=== PATIENT | female | born 1945 | race Hispanic/Latino ===

== ENCOUNTER 2017-09-02 07:44 | Inpatient (IN) | payer MEDICARE ==
[~2017-09-02] VITALS: Ht 170.2 cm; Wt 127.0 kg
[~2017-09-02 07:44] MED LIST: ASPIRIN325 MG PO; CLONIDINE HCL0.2 MG PO; FUROSEMIDE40 MG PO; IRBESARTAN150 MG PO; LANTUS100 UNITS/ SC; LASIX40 MG PO; LEVOTHYROXINE100 MCG PO; METOPROLOL TAR100 MG PO; NIFEDICAL XL30 MG PO; NIFEDIPINE ER30 M1 PO; POTASSIUM CHLO20 ME1 PO; TRILIPIX135 MG PO
[2017-09-02 10:23] LABS: BASOPHILS % 0.4 % (0.0-1.0); EOSINOPHILS # (AUTO) 0.1 (0.0-0.4); HEMATOCRIT 32.4 % (34.2-44.1); HEMOGLOBIN 10.1 g/dL (12.0-16.0); LYMPHOCYTES # (AUTO) 0.5 (1.0-3.2); LYMPHOCYTES % 6.6 % (18.0-39.1); MEAN CORPUSCULAR HEMOGLOBIN 29.6 pg (28-32); MEAN CORPUSCULAR HGB CONC 31.2 g/dL (31-35); MONOCYTES # (AUTO) 0.4 (0.2-0.8); MONOCYTES % 6.1 % (4.4-11.3); NEUTROPHILS # (AUTO) 5.9 (2.1-6.9); NEUTROPHILS % 84.5 % (38.7-80.0); PLATELET COUNT 132 x10e3/uL (140-360); RED BLOOD COUNT 3.41 x10e6/uL (3.6-5.1); RED CELL DISTRIBUTION WIDTH 14.1 % (11.7-14.4)
[2017-09-02 10:27] LABS: INR 1.31; PARTIAL THROMBOPLASTIN TIME 26.4 seconds (23.8-35.5); PROTHROMBIN TIME 15.3 seconds (11.9-14.5)
[2017-09-02] MEDS: ENOXAPARIN SODIUM INJ 100 MG/ML SYR SC SCH ×2 (10:30→22:27)
[2017-09-02 10:36] LABS: ALBUMIN 3.8 g/dL (3.5-5.0); ANION GAP 17.2 mmol/L (8-16); CALCIUM 9.3 mg/dL (8.4-10.2); CREATININE, SERUM 2.94 mg/dL (0.57-1.11); POTASSIUM 4.2 mmol/L (3.5-5.1)
[2017-09-02 10:38] LABS: CREATINE KINASE MB 2.5 ng/mL (0-5.0)
[2017-09-02 13:08] LABS: BILIRUBIN,URINE NEGATIVE (NEGATIVE); CLARITY,URINE CLEAR (CLEAR); COLOR,URINE YELLOW (YELLOW); KETONES,URINE NEGATIVE (NEGATIVE); LEUKOCYTE ESTERASE ,URINE NEGATIVE (NEGATIVE); NITRITE,URINE POSITIVE (NEGATIVE); PROTEIN,URINE DIPSTICK 1+ (NEGATIVE); URINE UROBILINOGEN 0.2 mg/dL (0.2 - 1)
[2017-09-02 13:18] LABS: BACTERIA,URINE MANY /HPF; EPITHELIAL CELLS,URINE FEW /LPF; WBC,URINE (MAN) 0-5 /HPF (0-5)
[2017-09-02] MEDS ORDERED: DEXTROSE 50% SYRINGE 50 ML IV PRN ×2 (14:15)
--- NOTE | 2017-09-02 15:43 | Diagnostic Imaging Report ---
EXAMINATION: CHEST 2 VIEWS INDICATION: Shortness of breath COMPARISON: Chest x-ray 11/25/2016. FINDINGS: PA and lateral views TUBES and LINES: None. LUNGS: Lungs are well inflated. There are bibasilar atelectasis. There is perihilar interstitial opacities, consistent with interstitial edema. PLEURA: No pleural effusion or pneumothorax. HEART AND MEDIASTINUM: Worsening cardiac size is severely enlarged. There are atherosclerotic calcifications within the aorta. BONES AND SOFT TISSUES: No acute osseous lesion. Stable partially visualized sided leg and screw fixation of the left humeral fracture. Fracture line of the left humeral head remains partially visualized. Soft tissues are unremarkable. UPPER ABDOMEN: No free air under the diaphragm. IMPRESSION: Severe cardiomegaly with interstitial edema. Signed by: Dr. Tacos Aguirre M.D. on 09/02/2017 3:39 PM
[2017-09-02 16:30] VITALS: BP 167/95
[2017-09-02] MEDS: INSULIN REGULAR, HUMAN 100 UNIT/1 ML 3ML VIAL SQ SCH ×2 (16:30→21:00)
[2017-09-02 16:47] VITALS: BP 167/95
[2017-09-02] MEDS: APIXAB 2.5 MG TABLET PO SCH (18:02)
[2017-09-02] MEDS: FUROSEMIDE INJ 10 MG/ML 4 ML VIAL IV SCH (18:02)
[2017-09-02] MEDS ORDERED: HYDRALAZINE HCL 20 MG/ML VIAL IV PRN (18:45)
[2017-09-02 19:39] LABS: CREATINE KINASE MB 2.7 ng/mL (0-5.0)
[2017-09-02 20:00] VITALS: BP 146/79
[2017-09-03] VITALS (7 sets, daily range): BP systolic 115–149; BP diastolic 59–76
[2017-09-03 01:31] LABS: CREATINE KINASE MB 2.4 ng/mL (0-5.0)
[2017-09-03] MEDS: INSULIN REGULAR, HUMAN 100 UNIT/1 ML 3ML VIAL SQ SCH ×4 (07:30→20:33)
[2017-09-03 07:55] LABS: BASOPHILS # (AUTO) 0.1 (0.0-0.1); BASOPHILS % 0.7 % (0.0-1.0); EOSINOPHILS # (AUTO) 0.1 (0.0-0.4); EOSINOPHILS % 2.1 % (0.0-6.0); HEMATOCRIT 31.6 % (34.2-44.1); HEMOGLOBIN 9.9 g/dL (12.0-16.0); LYMPHOCYTES # (AUTO) 0.6 (1.0-3.2); LYMPHOCYTES % 9.4 % (18.0-39.1); MEAN CORPUSCULAR HGB CONC 31.3 g/dL (31-35); MEAN CORPUSCULAR VOLUME 95.8 fL (81-99); MONOCYTES # (AUTO) 0.5 (0.2-0.8); NEUTROPHILS # (AUTO) 5.4 (2.1-6.9); NEUTROPHILS % 80.5 % (38.7-80.0); PLATELET COUNT 160 x10e3/uL (140-360); RED CELL DISTRIBUTION WIDTH 14.1 % (11.7-14.4)
[2017-09-03 08:15] LABS: CALCIUM 9.4 mg/dL (8.4-10.2); CREATININE, SERUM 3.01 mg/dL (0.57-1.11)
[2017-09-03] MEDS ORDERED: METOPROLOL TARTRATE INJ 1 MG/ML VIAL IV PRN (08:30)
[2017-09-03 08:41] LABS: CREATINE KINASE MB 1.9 ng/mL (0-5.0)
[2017-09-03] MEDS ORDERED: FUROSEMIDE INJ 10 MG/ML 4 ML VIAL IV SCH (09:00)
[2017-09-03] MEDS ORDERED: FENOFIBRIC ACID 135 MG PO SCH (09:00)
[2017-09-03] MEDS: NIFEDIPINE CR 30 MG TAB PO SCH (09:00)
[2017-09-03] MEDS: LEVOTHYROXINE SODIUM 100 MCG TAB PO SCH (09:00)
[2017-09-03] MEDS: METOPROLOL TARTRATE 25 MG TAB PO SCH ×2 (09:16→17:11)
[2017-09-03] MEDS: APIXAB 2.5 MG TABLET PO SCH ×2 (09:16→17:11)
[2017-09-03] MEDS: POTASSIUM CHLORIDE 20 MEQ TAB CR PO SCH (09:16)
[2017-09-03] MEDS: FUROSEMIDE INJ 10 MG/ML 4 ML VIAL IV SCH ×2 (09:16→17:10)
[2017-09-03 09:57] LABS: FREE THYROXINE INDEX 2.5742 (1.4-3.8); THYROID STIMULATING HORMONE 3.297 uIU/mL (0.350-4.940)
--- NOTE | 2017-09-03 10:51 | History and Physical ---
CHIEF COMPLAINT: Patient comes in with shortness of breath and came in with weight gain. HISTORY OF PRESENTING ILLNESS: The patient with a history of hypertension, history of chronic kidney disease, history of hypothyroidism, in usual state of health until 2 days prior to admission the patient noticed to have increasing weight gain and also shortness of breath and was advised by her renal doctor to go to the emergency room if it gets to that point, and she came in, was found to have atrial fibrillation and also started on medications for the same. PAST MEDICAL HISTORY: History of CKD, history of hypertension, history of diabetes mellitus, history of hypothyroidism, history of MRSA pneumonia in the past, and history of hyperkalemia. MEDICINES: She takes at home are: 1. Aspirin 325 mg. 2. Clonidine 0.2 mg. 3. Fenofibrate 135 mg. 4. Lasix 40 mg. 5. Insulin glargine 60 units at nighttime. 6. Levothyroxine 100 mcg daily. 7. Metoprolol 100 mg daily. 8. Nifedipine 30 mg. 9. Potassium chloride 20 mEq. PAST SURGICAL HISTORY: History of shoulder surgery, otherwise negative and noncontributory. SOCIAL HISTORY: No ETOH, no IV drug abuse, and no history of smoking either. FAMILY HISTORY: Noncontributory. REVIEW OF SYSTEMS: Negative for chest pain. Positive for some shortness of breath and orthopnea. No PND. No nausea, vomiting, diarrhea. No constipation. No rectal bleeding and no hematochezia and hematemesis. PHYSICAL EXAMINATION: GENERAL: Patient is alert and oriented x3. VITAL SIGNS: Temperature is 97.7, pulse of 109, respiration of 19, blood pressure is 136/70. HEENT: Normocephalic, atraumatic. Pupils react to light and accommodation. CVS: S1 and S2 normal. Irregularly irregular. ABDOMEN: Nontender, nondistended. EXTREMITIES: Positive for edema. LABORATORY VALUES: Initial white count was 6.9, hemoglobin of 10.1, hematocrit of 32.4. Chemistries: BUN and creatinine 76 and 3.01. Coags were normal. Urine was also normal. Chest x-ray showed severe cardiomegaly with interstitial edema. ASSESSMENT: 1. Volume overload. Will go and do an echocardiogram. 2. Atrial fibrillation, new onset. Has been started on Eliquis. Will continue monitoring it. Also check thyroid levels to see for hyperthyroidism or overcorrection. Continue monitoring her fluids. Inputs and outputs to be monitored. Salt restriction and also cardiac diet, low-sodium diet. Further recommendations on clinical course. Also, phlebotomy technologist has been consulted. Job#: [id number]
[2017-09-03] MEDS: CLONIDINE HCL 0.2 MG TAB PO SCH (17:11)
[2017-09-03] MEDS: FENOFIBRIC ACID 135 MG PO SCH (20:33)
[2017-09-03] MEDS ORDERED: HOME MEDICATION--PATIENTS OWN PO SCH (21:00)
[2017-09-04] VITALS: BP 136/60
--- NOTE | 2017-09-04 00:30 | Consultation ---
DATE OF CONSULTATION: September 03, 2017 REASON FOR CONSULTATION: New-onset AFib. CONSULTING PHYSICIAN: Dr. Haines HPI: This is a pleasant 72-year-old female that presented with fluid retention. According to the patient, she said she has had increased bilateral lower extremity edema, had gained 14 lbs in 1 week, was having shortness of breath, dyspnea on exertion, and difficulty laying down that she decided to come into the emergency room for evaluation. She has a history of CHF and COPD. In the ER, she was found to be in AFib with RVR and she was admitted for further evaluation. She denies any chest pain, any dizziness, any diaphoresis or headache. Troponin was negative. EKG irregularly irregular. BNP 615. PAST MEDICAL HISTORY: High blood pressure, diabetes, CHF, hypothyroidism, COPD, hyperlipidemia, anemia, CKD, pneumonia, obesity. PAST SURGICAL HISTORY: Left shoulder surgery and tracheostomy in the past. FAMILY HISTORY: Positive for CAD. SOCIAL HISTORY: No smoking, no drinking. She lives at home alone. MEDICATIONS: See med list. ALLERGIES: SHE IS NOT ALLERGIC TO ANY MEDICATION. REVIEW OF SYSTEMS: Negative except those mentioned above. PHYSICAL EXAMINATION VITALS: Temperature 97, heart rate 104, blood pressure 136/61, respiration 18, oxygen saturation 96% on 2 L nasal cannula. GENERAL: She is alert, awake, and oriented times 3. HEENT: Mucous membrane moist. NECK: Supple. LUNGS: Bilateral clear to auscultation. CARDIOVASCULAR: Irregularly irregular. ABDOMEN: Soft. NEUROLOGIC: Intact. EXTREMITIES: Positive with edema. LABS: Sodium 143, potassium 4.2, chloride 107, CO2 23, BUN 77, creatinine 2.94. Glucose 154. White blood cells 6.93, hemoglobin 10.1, hematocrit 32.4, platelet 132,000. PT 15.3, PTT 26.4, INR 1.31. IMPRESSIONS 1. New-onset atrial fibrillation. 2. Chronic kidney disease. 3. Hypothyroidism. 4. Diabetes. 5. Hypertension. 6. Obesity. 7. History of congestive heart failure and chronic obstructive pulmonary disease. ASSESSMENT AND PLAN: Will go ahead an echocardiogram to assess the left ventricular and the valve function. Will continue her home medication. Explained the risks and benefits of oral anticoagulation. She agreed. An Eliquis was started from the emergency room. Will put her on low-salt diet and daily weight. Further cardiac workup pending clinical cause. Thank you for this consultation. Dictated By: Paul Cardona NP Job#: [id number] CQ
[2017-09-04] MEDS: LEVOTHYROXINE SODIUM 100 MCG TAB PO SCH (05:39)
[2017-09-04 07:06] LABS: BASOPHILS # (AUTO) 0.1 (0.0-0.1); BASOPHILS % 1.1 % (0.0-1.0); EOSINOPHILS # (AUTO) 0.2 (0.0-0.4); EOSINOPHILS % 3.4 % (0.0-6.0); HEMATOCRIT 31.7 % (34.2-44.1); HEMOGLOBIN 9.7 g/dL (12.0-16.0); LYMPHOCYTES # (AUTO) 0.7 (1.0-3.2); LYMPHOCYTES % 12.3 % (18.0-39.1); MEAN CORPUSCULAR HEMOGLOBIN 29.7 pg (28-32); MEAN CORPUSCULAR HGB CONC 30.6 g/dL (31-35); MEAN CORPUSCULAR VOLUME 96.9 fL (81-99); MONOCYTES # (AUTO) 0.5 (0.2-0.8); MONOCYTES % 9.8 % (4.4-11.3); NEUTROPHILS # (AUTO) 3.9 (2.1-6.9); NEUTROPHILS % 72.8 % (38.7-80.0); PLATELET COUNT 151 x10e3/uL (140-360); RED BLOOD COUNT 3.27 x10e6/uL (3.6-5.1); RED CELL DISTRIBUTION WIDTH 13.8 % (11.7-14.4)
[2017-09-04] MEDS: INSULIN REGULAR, HUMAN 100 UNIT/1 ML 3ML VIAL SQ SCH ×4 (07:30→21:00)
[2017-09-04 07:36] LABS: ANION GAP 14.2 mmol/L (8-16); CALCIUM 9.3 mg/dL (8.4-10.2); CREATININE, SERUM 3.17 mg/dL (0.57-1.11); POTASSIUM 4.2 mmol/L (3.5-5.1)
[2017-09-04 07:56] VITALS: BP 139/80
[2017-09-04 08:30] VITALS: BP 139/80
[2017-09-04] MEDS: CLONIDINE HCL 0.2 MG TAB PO SCH ×2 (08:56→16:50)
[2017-09-04] MEDS: FUROSEMIDE INJ 10 MG/ML 4 ML VIAL IV SCH ×2 (08:56→16:50)
[2017-09-04] MEDS: APIXAB 2.5 MG TABLET PO SCH ×2 (08:57→16:50)
[2017-09-04] MEDS: NIFEDIPINE CR 30 MG TAB PO SCH (08:57)
[2017-09-04] MEDS: POTASSIUM CHLORIDE 20 MEQ TAB CR PO SCH (08:57)
[2017-09-04] MEDS: METOPROLOL TARTRATE 25 MG TAB PO SCH ×2 (08:57→16:50)
[2017-09-04] MEDS: INSULIN DETEMIR 100 UNIT/ML PEN SQ SCH (11:30)
[2017-09-04 12:00] VITALS: BP 112/70
[2017-09-04 16:00] VITALS: BP 124/65
[2017-09-04 20:00] VITALS: BP 119/61
[2017-09-04] MEDS: FENOFIBRIC ACID 135 MG PO SCH (21:00)
[2017-09-05] VITALS: BP 111/57
[2017-09-05 04:00] VITALS: BP 130/63
[2017-09-05] MEDS: LEVOTHYROXINE SODIUM 100 MCG TAB PO SCH (05:55)
[2017-09-05 07:27] LABS: ANION GAP 14.6 mmol/L (8-16); CREATININE, SERUM 3.38 mg/dL (0.57-1.11); POTASSIUM 4.6 mmol/L (3.5-5.1)
[2017-09-05] MEDS: INSULIN REGULAR, HUMAN 100 UNIT/1 ML 3ML VIAL SQ SCH ×3 (07:30→16:45)
[2017-09-05 08:00] VITALS: BP 118/56
[2017-09-05] MEDS: INSULIN DETEMIR 100 UNIT/ML PEN SQ SCH (08:15)
[2017-09-05] MEDS: FUROSEMIDE INJ 10 MG/ML 4 ML VIAL IV SCH ×2 (08:15→16:00)
[2017-09-05] MEDS: NIFEDIPINE CR 30 MG TAB PO SCH (08:15)
[2017-09-05] MEDS: CLONIDINE HCL 0.2 MG TAB PO SCH ×3 (08:15→17:42)
[2017-09-05] MEDS: METOPROLOL TARTRATE 25 MG TAB PO SCH ×2 (08:16→16:00)
[2017-09-05] MEDS: APIXAB 2.5 MG TABLET PO SCH ×2 (08:16→16:00)
[2017-09-05] MEDS: POTASSIUM CHLORIDE 20 MEQ TAB CR PO SCH (08:16)
[2017-09-05 08:22] VITALS: BP 118/56
[2017-09-05 12:00] VITALS: BP 112/69
[2017-09-05 16:00] VITALS: BP 114/68
--- NOTE | 2017-10-17 00:02 | Discharge Summary ---
The patient came in with shortness of breath and with weight gain. The patient had a diagnosis of volume overload. Echocardiogram was done. Atrial fibrillation, new onset, was also diagnosed, was started on Eliquis and continued monitoring. Cardiology consult was done. Patient also had shortness of breath, which got better with diuresis. Consult with Dr. Matthews was done. AFib, CKD, hypothyroidism, diabetes, hypertension, obesity, all were taken controlled. Patient's rate control was achieved by metoprolol also. Patient was on furosemide and discharged home on furosemide, insulin, levothyroxine at 200 mcg, hydralazine, and apixaban 2.5 mg b.i.d. Patient's creatinine was 3.01, which she has a renal doctor on outpatient basis, so patient will follow up with her renal doctor. FINAL DIAGNOSES 1. Congestive heart failure, systolic, acute on chronic. 2. Atrial fibrillation, new onset, started on apixaban. 3. Chronic diuresis, chronic kidney disease. Continue with diuresis. The patient was asked to follow up with her primary care physician and renal doctor and also, her cardiac doctor. HALEY NAJERA MD Job#: [id number] CQ
== END 2017-09-05 18:04 | disposition home or self-care (01) | DRG 291 ==
LOC: ER 07:44 → ERHOLD 14:38 → MED/SURG3 15:15
PROVIDERS: ADMIT Family Medicine; ATTEND Family Medicine
DX: I13.0 Hypertensive heart and chronic kidney disease with heart failure and stage 1 through stage 4 chronic kidney disease, or unspecified chronic kidney disease (principal); I50.23 Acute on chronic systolic (congestive) heart failure; I48.91 Unspecified atrial fibrillation; E87.70 Fluid overload, unspecified; Z68.41 Body mass index [BMI] 40.0-44.9, adult; E03.9 Hypothyroidism, unspecified; E66.9 Obesity, unspecified; J44.9 Chronic obstructive pulmonary disease, unspecified; E78.5 Hyperlipidemia, unspecified; N18.3 Chronic kidney disease, stage 3 (moderate)
CPT/HCPCS: 36415; 71046; 80048; 80053; 81001; 82550; 82553; 82948; 83880; 84436; 84443; 84479; 84484; 85025; 85610; 85730; 87086; 93005; 93306; 99284; J1650; J1940

== ENCOUNTER 2018-01-01 14:28 | Observation (INO) | payer MEDICARE, OTHER ==
[~2018-01-01] VITALS: Ht 170.2 cm; Wt 133.8 kg
--- NOTE | 2018-01-01 16:07 | Diagnostic Imaging Report ---
PROCEDURE: A single AP view of the chest. COMPARISON: 09/02/17 INDICATIONS: SEVERE ANEMIC, STAGE 4 KIDNEY FAILURE; FEELING AND IS WEAK FINDINGS: Lines/tubes: None. Lungs: Pulmonary vascular congestion and mild interstitial edema. Pleura: There is no pneumothorax. Heart and mediastinum: Enlarged cardiac silhouette. Bones: No acute bony abnormality. Partially imaged left humeral plate and screw fixation. IMPRESSION: Enlarged cardiac silhouette, pulmonary vasculature congestion, and mild interstitial edema. Dictated by: Mynor Beckwith M.D. on 01/01/2018 at 16:14 Electronically approved by: Mynor Beckwith M.D. on 01/01/2018 at 16:14
[2018-01-01 16:10] LABS: BASOPHILS % 0.4 % (0.0-1.0); EOSINOPHILS # (AUTO) 0.1 (0.0-0.4); EOSINOPHILS % 1.9 % (0.0-6.0); HEMATOCRIT 26.5 % (34.2-44.1); HEMOGLOBIN 8.3 g/dL (12.0-16.0); LYMPHOCYTES # (AUTO) 0.5 (1.0-3.2); LYMPHOCYTES % 6.5 % (18.0-39.1); MEAN CORPUSCULAR HEMOGLOBIN 29.3 pg (28-32); MEAN CORPUSCULAR HGB CONC 31.3 g/dL (31-35); MEAN CORPUSCULAR VOLUME 93.6 fL (81-99); MONOCYTES # (AUTO) 0.5 (0.2-0.8); MONOCYTES % 6.7 % (4.4-11.3); NEUTROPHILS # (AUTO) 5.9 (2.1-6.9); NEUTROPHILS % 83.9 % (38.7-80.0); PLATELET COUNT 233 x10e3/uL (140-360); RED BLOOD COUNT 2.83 x10e6/uL (3.6-5.1); RED CELL DISTRIBUTION WIDTH 14.7 % (11.7-14.4)
[2018-01-01] MEDS ORDERED: FUROSEMIDE INJ 10 MG/ML 4 ML VIAL IV ONE (16:15)
[2018-01-01 16:24] LABS: INR 2.1; PROTHROMBIN TIME 22.1 seconds (11.9-14.5)
[2018-01-01 16:25] LABS: PARTIAL THROMBOPLASTIN TIME 41.9 seconds (23.8-35.5)
[2018-01-01 16:43] LABS: ALBUMIN 2.9 g/dL (3.5-5.0); ALBUMIN/GLOBULIN RATIO 0.8 (0.8-2.0); CALCIUM 8.9 mg/dL (8.4-10.2); CREATININE, SERUM 2.6 mg/dL (0.57-1.11)
[2018-01-01 16:51] LABS: CREATINE KINASE MB 0.8 ng/mL (0-5.0)
[2018-01-01 16:52] LABS: ANION GAP 16.7 mmol/L (8-16); POTASSIUM 4.7 mmol/L (3.5-5.1)
[2018-01-01 17:37] LABS: CLARITY,URINE SL CLOUDY (CLEAR); COLOR,URINE YELLOW (YELLOW); KETONES,URINE NEGATIVE (NEGATIVE); LEUKOCYTE ESTERASE ,URINE NEGATIVE (NEGATIVE); NITRITE,URINE NEGATIVE (NEGATIVE); PROTEIN,URINE DIPSTICK TRACE (NEGATIVE); URINE UROBILINOGEN 0.2 mg/dL (0.2 - 1)
[2018-01-01 17:38] LABS: AMORPHOUS SEDIMENT,URINE FEW (FEW); BACTERIA,URINE MANY /HPF; BILIRUBIN,URINE NEGATIVE (NEGATIVE); EPITHELIAL CELLS,URINE FEW /LPF
[2018-01-01] MEDS ORDERED: SODIUM CHLORIDE FLUSH 10 ML SYR INJ PRN (18:30)
[2018-01-01] MEDS ORDERED: DEXTROSE 50% SYRINGE 50 ML IV PRN (19:00)
[2018-01-01] MEDS: CEFTRIAXONE SOD 1 GM VIAL IV SCH (19:09)
[2018-01-01] MEDS: INSULIN REGULAR, HUMAN 100 UNIT/1 ML 3ML VIAL SQ SCH (19:59)
[2018-01-01] MEDS ORDERED: ASPIR 8181 MG PO (20:14)
[2018-01-01] MEDS ORDERED: METOPROLOL TART25 MG PO (20:14)
[2018-01-01] MEDS ORDERED: apixaban PO (20:15)
--- NOTE | 2018-01-01 21:20 | History and Physical ---
CHIEF COMPLAINT: [id number] female comes in with generalized weakness. HISTORY OF PRESENTING ILLNESS: This is Ms. Angelica Haskins with a history of hypertension, with history of diabetes mellitus, chronic renal disease 4, was in usual state of health until the patient started to have consecutive days of weakness. The patient has been having this for last 3 months, for the last 2 days the patient weakness has gotten increased in exacerbation and patient came in and was admitted for congestive heart failure, for fluid overload, and for chronic kidney disease. PAST MEDICAL HISTORY: History of CKD, history of hypertension, history of hyperlipidemia, history of diabetes mellitus, history of hypothyroidism, and history of AFib, on anticoagulation. Patient also has DJD of the lower extremities. MEDICATIONS: Include aspirin 325, clonidine 0.2 mg, fenofibrate (Trilipix) 135 mg, insulin glargine 60 units at nighttime, levothyroxine 200 mcg daily, metoprolol 100 mg daily, nifedipine ER 30 mg, potassium chloride 20 mEq daily. SURGICAL HISTORY: Includes history of left shoulder surgery and history of cataract surgery. REVIEW OF SYSTEMS: Negative for chest pain. Positive for some shortness of breath. No nausea, vomiting, diarrhea. No constipation, rectal bleeding. No hematochezia, no hematemesis. SOCIAL HISTORY: No ETOH, no IV drug abuse, and no smoking history. PHYSICAL EXAMINATION: GENERAL: Patient is alert and oriented x3. She has gotten 80 mg of Lasix and she is diuresing well. VITAL SIGNS: Temperature is 97.9, blood pressure is 114/62, pulse of 70, respirations of 18. HEENT: Normocephalic, atraumatic. Pupils react to light and accommodation. CVS: S1 and S2 normal. S3 present. Regular rate and rhythm. ABDOMEN: Nontender, nondistended. EXTREMITIES: Positive for edema. LUNGS: Have crackles on bilateral bases. LABORATORY VALUES: White count of 6.97, hemoglobin of 8.3, and hematocrit of 26.5, RDW was 14.7, neutrophil count was at 83.9. Coags were INR was 2.1 and 22.1, APTT 1.9. Chemistry: Sodium 135, BUN 55, creatinine of 2.6, GFR of 18, glucose is 224. BNP of 879. Urine, many bacteria, otherwise cloudy. MICROBIOLOGY: Urine has been sent for culture. IMAGING STUDIES: Showed enlarged cardiac silhouette, pulmonary vascular congestion, mild interstitial edema. ASSESSMENT: 1. Chronic renal failure. 2. Weakness. 3. Congestive heart failure, [id number]-fsmhrtk. Echocardiogram has been ordered. Thyroid has been ordered. Will follow up per the B-type natriuretic peptide. Dr. Romano has been consulted for her chronic kidney disease. Anemia, will do iron deficiency panel and continue monitoring his complete blood cell count and comprehensive metabolic panel. Further recommendations on clinical course. Will continue diuresing the patient and checking her electrolytes on a daily basis. The patient will be restarted back on her home medications including Eliquis 2.5 mg daily. Job#: [id number]
[2018-01-01 22:31] VITALS: BP 121/70
[2018-01-01 22:33] VITALS: BP 121/70
[2018-01-01 22:39] VITALS: BP 121/70
[2018-01-02] VITALS (7 sets, daily range): BP systolic 115–133; BP diastolic 55–77
[2018-01-02 01:30] LABS: CREATINE KINASE MB 0.7 ng/mL (0-5.0)
[2018-01-02] MEDS: LEVOTHYROXINE SODIUM 100 MCG TAB PO SCH (05:26)
[2018-01-02 05:29] LABS: BASOPHILS % 0.7 % (0.0-1.0); EOSINOPHILS # (AUTO) 0.4 (0.0-0.4); HEMOGLOBIN 8.2 g/dL (12.0-16.0); LYMPHOCYTES # (AUTO) 0.5 (1.0-3.2); LYMPHOCYTES % 8.8 % (18.0-39.1); MEAN CORPUSCULAR HEMOGLOBIN 28.7 pg (28-32); MEAN CORPUSCULAR HGB CONC 30.4 g/dL (31-35); MEAN CORPUSCULAR VOLUME 94.4 fL (81-99); MONOCYTES # (AUTO) 0.5 (0.2-0.8); NEUTROPHILS # (AUTO) 4.4 (2.1-6.9); NEUTROPHILS % 75.2 % (38.7-80.0); PLATELET COUNT 240 x10e3/uL (140-360); RED BLOOD COUNT 2.86 x10e6/uL (3.6-5.1); RED CELL DISTRIBUTION WIDTH 14.6 % (11.7-14.4)
[2018-01-02 05:48] LABS: ALBUMIN 2.8 g/dL (3.5-5.0); ALBUMIN/GLOBULIN RATIO 0.7 (0.8-2.0); ANION GAP 15.6 mmol/L (8-16); CALCIUM 8.9 mg/dL (8.4-10.2); CREATININE, SERUM 2.58 mg/dL (0.57-1.11); POTASSIUM 4.6 mmol/L (3.5-5.1)
[2018-01-02 06:21] LABS: FERRITIN 109.09 ng/mL (4.63-204.00)
[2018-01-02 06:55] LABS: FREE THYROXINE INDEX 2.2084 (1.4-3.8); THYROID STIMULATING HORMONE 3.732 uIU/mL (0.350-4.940)
[2018-01-02 06:57] LABS: EOSINOPHILS % (MANUAL) 4 % (0-7); LYMPHOCYTES % (MANUAL) 17 % (19-48); MONOCYTES % (MANUAL) 12 % (3.4-9.0); NEUTROPHILS % (MANUAL) 67 % (40-74)
[2018-01-02 06:58] LABS: ANISOCYTOSIS SLIGHT; HYPOCHROMASIA SLIGHT; PLATELET ESTIMATE ADEQUATE; PLATELET MORPHOLOGY COMMENT NORMAL; RBC MORPHOLOGY COMMENT ABNORMAL
[2018-01-02] MEDS: INSULIN REGULAR, HUMAN 100 UNIT/1 ML 3ML VIAL SQ SCH ×4 (08:15→20:26)
[2018-01-02] MEDS: FUROSEMIDE 40 MG TAB PO SCH ×2 (09:00→17:00)
[2018-01-02] MEDS ORDERED: APIXAB 2.5 MG TABLET PO SCH (09:00)
[2018-01-02 09:13] LABS: CREATINE KINASE MB 0.7 ng/mL (0-5.0)
[2018-01-02] MEDS: CLONIDINE HCL 0.2 MG TAB PO SCH ×2 (09:18→17:02)
[2018-01-02] MEDS: NIFEDIPINE CR 30 MG TAB PO SCH (09:20)
[2018-01-02] MEDS: METOPROLOL TARTRATE 25 MG TAB PO SCH ×2 (09:20→17:03)
[2018-01-02] MEDS: INSULIN DETEMIR 100 UNIT/ML PEN SQ SCH (09:21)
[2018-01-02] MEDS: FUROSEMIDE INJ 10 MG/ML 4 ML VIAL IV SCH ×2 (09:28→17:02)
[2018-01-02] MEDS: ASPIRIN 81 MG CHEW TAB PO SCH (09:28)
[2018-01-02] MEDS: FENOFIBRIC ACID 135 MG PO SCH (09:33)
[2018-01-02 18:33] LABS: CREATINE KINASE MB 0.6 ng/mL (0-5.0)
[2018-01-02] MEDS: CEFTRIAXONE SOD 1 GM VIAL IV SCH (19:15)
[2018-01-03] VITALS: BP 130/60
[2018-01-03 04:00] VITALS: BP 129/60
[2018-01-03] MEDS: LEVOTHYROXINE SODIUM 100 MCG TAB PO SCH (05:01)
[2018-01-03] MEDS: INSULIN REGULAR, HUMAN 100 UNIT/1 ML 3ML VIAL SQ SCH (07:30)
[2018-01-03 07:43] VITALS: BP 128/67
[2018-01-03] MEDS: INSULIN DETEMIR 100 UNIT/ML PEN SQ SCH (08:01)
[2018-01-03] MEDS: ASPIRIN 81 MG CHEW TAB PO SCH (08:10)
[2018-01-03] MEDS: CLONIDINE HCL 0.2 MG TAB PO SCH (08:10)
[2018-01-03] MEDS: FUROSEMIDE 40 MG TAB PO SCH (08:10)
[2018-01-03] MEDS: FUROSEMIDE INJ 10 MG/ML 4 ML VIAL IV SCH (08:10)
[2018-01-03] MEDS: NIFEDIPINE CR 30 MG TAB PO SCH (08:11)
[2018-01-03] MEDS: METOPROLOL TARTRATE 25 MG TAB PO SCH (08:11)
[2018-01-03] MEDS: FENOFIBRIC ACID 135 MG PO SCH (09:00)
[2018-01-03] MEDS ORDERED: APIXAB 2.5 MG TABLET PO SCH (09:00)
== END 2018-01-03 10:39 | disposition home or self-care (01) ==
LOC: ER 14:28 → ERHOLD 18:49 → IMCU 21:58
PROVIDERS: ADMIT Family Medicine; ATTEND Family Medicine
DX: I13.0 Hypertensive heart and chronic kidney disease with heart failure and stage 1 through stage 4 chronic kidney disease, or unspecified chronic kidney disease (principal); I50.43 Acute on chronic combined systolic (congestive) and diastolic (congestive) heart failure; R53.1 Weakness; E11.22 Type 2 diabetes mellitus with diabetic chronic kidney disease; N18.9 Chronic kidney disease, unspecified; E11.65 Type 2 diabetes mellitus with hyperglycemia; D63.1 Anemia in chronic kidney disease; N18.4 Chronic kidney disease, stage 4 (severe); E78.5 Hyperlipidemia, unspecified; E03.9 Hypothyroidism, unspecified; I48.91 Unspecified atrial fibrillation; Z79.01 Long term (current) use of anticoagulants
CPT/HCPCS: 36415 ×2; 51700; 71045; 80053 ×2; 81001; 82550 ×2; 82553 ×2; 82728; 82948 ×3; 83540; 83880; 84436; 84443; 84466; 84479; 84484 ×2; 85025 ×2; 85610; 85730; 87086; 93005; 93306; 99284; G0378 ×3; J0696 ×2; J1940 ×3

== ENCOUNTER 2018-03-09 09:10 | Inpatient (IN) | payer MEDICARE, OTHER ==
[~2018-03-09] VITALS: Ht 170.2 cm; Wt 127.0 kg
[~2018-03-09 09:10] MED LIST changes: +ASPIR 8181 MG PO; +METOPROLOL TART25 MG PO; +apixaban PO
[2018-03-09 09:41] LABS: BASOPHILS % 0.6 % (0.0-1.0); EOSINOPHILS # (AUTO) 0.1 (0.0-0.4); EOSINOPHILS % 0.8 % (0.0-6.0); HEMATOCRIT 36.4 % (34.2-44.1); HEMOGLOBIN 11.4 g/dL (12.0-16.0); LYMPHOCYTES # (AUTO) 0.3 (1.0-3.2); LYMPHOCYTES % 4.4 % (18.0-39.1); MEAN CORPUSCULAR HGB CONC 31.3 g/dL (31-35); MEAN CORPUSCULAR VOLUME 92.6 fL (81-99); MONOCYTES # (AUTO) 0.4 (0.2-0.8); MONOCYTES % 6.5 % (4.4-11.3); NEUTROPHILS # (AUTO) 5.4 (2.1-6.9); NEUTROPHILS % 87.1 % (38.7-80.0); PLATELET COUNT 195 x10e3/uL (140-360); RED BLOOD COUNT 3.93 x10e6/uL (3.6-5.1); RED CELL DISTRIBUTION WIDTH 16.8 % (11.7-14.4)
[2018-03-09] MEDS ORDERED: ALBUTEROL/IPRATROPIUM 3 ML NEB NEB ONE (09:45)
[2018-03-09 09:58] LABS: ALBUMIN 3.7 g/dL (3.5-5.0); ALBUMIN/GLOBULIN RATIO 0.9 (0.8-2.0); ANION GAP 17.5 mmol/L (8-16); CALCIUM 9.2 mg/dL (8.4-10.2); CREATININE, SERUM 2.49 mg/dL (0.57-1.11); MAGNESIUM 2.7 MG/DL (1.3-2.1); PHOSPHORUS 3.4 MG/DL (2.3-4.7); POTASSIUM 4.5 mmol/L (3.5-5.1)
[2018-03-09 10:18] LABS: THYROID STIMULATING HORMONE 7.018 uIU/mL (0.350-4.940)
--- NOTE | 2018-03-09 10:22 | Diagnostic Imaging Report ---
PROCEDURE: A single AP view of the chest. COMPARISON: Chest radiograph 01/01/18. INDICATIONS: WEAKNESS, SHORTNESS OF BREATH X 1 WEEK FINDINGS: Lines/tubes: None. Lungs: Perihilar and interstitial opacities. Consolidative opacity is present in the right upper lobe and bilateral lower lobes. Pleura: Small bilateral pleural effusions. No evidence of pneumothorax. Heart and mediastinum: Enlarged cardiomediastinal silhouette. Bones: No acute bony abnormality. IMPRESSION: Moderate pulmonary interstitial edema with small bilateral pleural effusions. Multifocal consolidative opacities which could represent superimposed pneumonia or alveolar edema. Follow up chest radiograph suggested to assess for resolution. Dictated by: LAWRENCE CHATMAN M.D. on 03/09/2018 at 10:31 Electronically approved by: LAWRENCE CHATMAN M.D. on 03/09/2018 at 10:31
[2018-03-09] MEDS ORDERED: CEFTRIAXONE SOD 1 GM VIAL IV SCH (11:00)
[2018-03-09] MEDS ORDERED: FUROSEMIDE INJ 10 MG/ML 4 ML VIAL IV ONE ×2 (11:00→11:15)
[2018-03-09] MEDS ORDERED: SODIUM CHLORIDE FLUSH 10 ML SYR INJ PRN (11:15)
[2018-03-09] MEDS ORDERED: ASPIRIN 81 MG CHEW TAB PO ONE ×2 (11:15→15:30)
[2018-03-09 11:36] LABS: CLARITY,URINE CLOUDY (CLEAR); COLOR,URINE YELLOW (YELLOW); LEUKOCYTE ESTERASE ,URINE 2+ (NEGATIVE); NITRITE,URINE POSITIVE (NEGATIVE); PROTEIN,URINE DIPSTICK 1+ (NEGATIVE)
[2018-03-09 11:37] LABS: BILIRUBIN,URINE NEGATIVE (NEGATIVE); KETONES,URINE NEGATIVE (NEGATIVE); URINE UROBILINOGEN 0.2 mg/dL (0.2 - 1)
[2018-03-09] MEDS: AZITHROMYCIN 500MG/NS 250 ML 250 ML IV SCH (11:43)
[2018-03-09 11:45] LABS: WBC,URINE (MAN) >50 /HPF (0-5)
[2018-03-09] MEDS ORDERED: DEXTROSE 50% SYRINGE 50 ML IV PRN (11:45)
[2018-03-09] MEDS ORDERED: FLUCONAZOLE 200 MG/100 ML 100 ML IV ONE (11:45)
[2018-03-09 11:46] LABS: BACTERIA,URINE MANY /HPF; EPITHELIAL CELLS,URINE FEW /LPF
[2018-03-09 11:47] LABS: MUCUS,URINE FEW (RARE)
[2018-03-09] MEDS: ALBUTEROL/IPRATROPIUM 3 ML NEB NEB SCH ×2 (13:35→19:40)
[2018-03-09] MEDS: FUROSEMIDE INJ 10 MG/ML 4 ML VIAL IV SCH (14:37)
[2018-03-09] MEDS ORDERED: AZITHROMYCIN 500MG/NS 250 ML 250 ML IV ONE (15:00)
[2018-03-09] MEDS ORDERED: IRBESARTAN75 MG PEG (15:39)
[2018-03-09] MEDS ORDERED: ELIQUIS PO (15:39)
[2018-03-09] MEDS ORDERED: ZEMPLAR1 MCG PO (15:39)
[2018-03-09] MEDS ORDERED: HYDRALAZINE HCL25 MG PO (15:39)
--- NOTE | 2018-03-09 15:57 | Consultation ---
DATE OF CONSULTATION: March 09, 2018 REASON FOR CONSULTATION: AFib and CHF. HISTORY OF PRESENT ILLNESS: Ms. Haskins is a 73-year-old lady with a past medical history as listed below. Presented with complaints of cough, fever, chills, and weakness for the last 5-6 days. Apparently, it has been gradually getting worse. She states she feels cold. Denies any abdominal pain, vomiting or diarrhea. No chest pain. Does get short-winded at rest and minimal exertion. She has atrial fibrillation and takes Eliquis. She was noted to have pneumonia and CHF, and is being admitted to the hospital. REVIEW OF SYSTEMS CONSTITUTIONAL: Has fatigue and weakness. HEENT: No headache, blurring vision, seizure, or syncope. CARDIOVASCULAR: No chest pain. Has dyspnea. Has leg edema. RESPIRATORY: Has some cough. Has chills. GI: No abdominal pain, vomiting or diarrhea. : Has decreased frequency of urination. ALLERGIES: NO KNOWN DRUG ALLERGIES. MEDICATIONS: See list. PAST MEDICAL HISTORY 1. History of hypertension. 2. History of CHF. 3. History of atrial fibrillation. 4. History of chronic kidney disease. 5. History of hypothyroidism. 6. History of anemia. 7. History of diabetes mellitus. SOCIAL HISTORY: Does not smoke or drink. FAMILY HISTORY: Noncontributory. PHYSICAL EXAMINATION GENERAL: Obese lady, alert, oriented, and not in any obvious distress. VITALS: Heart rate is 65, blood pressure 105/82, respiratory rate 18, temperature is 97 7. HEENT: Atraumatic. NECK: No JVD, bruit, thyromegaly, or lymphadenopathy. CARDIOVASCULAR: First and 2nd heart sounds heard. A 2/6 systolic murmur heard at the left sternal border. CHEST: Decreased air entry at the bases. No adventitious sounds are appreciated. ABDOMEN: Obese and nontender. EXTREMITIES: One to 2+ edema. Mild bruising of her extremities. LABS: WBC is 6.1, hemoglobin 11.4, hematocrit 36.4, and platelets are 195,000. Sodium 131, potassium 4.5, chloride 99, BUN is 60, creatinine is 2.4, glucose 246. Total bilirubin is 2.1, AST 25, ALT is 18, alk phos is 42. Troponin 0.041. BNP is 1397. TSH 7.018. EKG shows atrial fibrillation at 104 beats per minute, right axis deviation, low voltage, Q-waves in V1 to V5, nonspecific ST-T changes, anterolateral infarct, age undetermined. Chest x-ray shows moderate pulmonary interstitial edema and bilateral pleural effusions. IMPRESSION 1. Congestive heart failure. 2. Atrial fibrillation. 3. Possible pneumonia. 4. Chronic kidney disease. 5. Obesity. 6. Diabetes mellitus. 7. Hypothyroidism. PLAN 1. IV diuresis. 2. Echocardiogram to assess LV function and valvular function. 3. Aspirin, beta blockers and statins. 4. Patient was on Eliquis at home. Can continue the same. 5. She has been started on antibiotics. Can continue the same. 6. Further cardiac workup depending on clinical course. I discussed my impression and plan of management with the patient. As always, I appreciate and thank you very much for this referral. Job#: [id number] DORIAN
[2018-03-09] MEDS ORDERED: ENOXAPARIN SOD INJ 40 MG/0.4 ML SYR SC SCH (17:00)
[2018-03-09] MEDS ORDERED: APIXABAN 5 MG TABLET PO SCH (17:00)
[2018-03-09] MEDS: APIXAB 2.5 MG TABLET PO SCH (18:40)
[2018-03-09] MEDS: METOPROLOL TARTRATE 25 MG TAB PO SCH (18:40)
[2018-03-09] MEDS: NYSTATIN 100,000 UNITS/GM CRM 30GM TUBE TOP SCH (18:40)
[2018-03-09] MEDS: INSULIN REGULAR, HUMAN 100 UNIT/1 ML 3ML VIAL SQ SCH ×2 (18:40→21:00)
[2018-03-09 19:41] LABS: CREATINE KINASE MB 3.3 ng/mL (0-5.0)
--- NOTE | 2018-03-09 22:22 | History and Physical ---
The patient returned to the hospital for shortness of breath. HISTORY OF PRESENT ILLNESS: Ms Haskins presents with a history of diabetes mellitus; history of chronic renal disease, stage IV; hypertension; hyperlipidemia, was in her usual state of health until the patient started to have shortness of breath. No fever noted. The patient came in and was admitted for pneumonia. PAST MEDICAL HISTORY: History of CKD, history of hypertension, history of hyperlipidemia, history of hypothyroidism, history of arthritis, history of atrial fibrillation. SOCIAL HISTORY: No ETOH. No drug abuse. No smoking history. PAST SURGICAL HISTORY: History of left shoulder surgery and history of cataract surgery. MEDICATIONS: She takes at home are; 1. Eliquis 2.5 mg twice a day. 2. Zemplar 1 mcg daily. 3. Nifedipine 90 mg 4. Metoprolol 25 mg twice a day. 5. Levothyroxine 100 mcg twice a day. 6. Irbesartan 75 mg daily. 7. Insulin glargine 60 units daily. 8. Hydralazine 25 mg twice a day. 9. Lasix 40 mg twice a day. 10. Trilipix 135 mg. 11. Clonidine 0.2 mg. 12. Aspirin 81 mg daily. REVIEW OF SYSTEMS: Negative for chest pain. Positive for shortness of breath. No nausea, vomiting, or diarrhea. No constipation. No rectal bleeding. No fever. No diplopia. No blurry vision. PHYSICAL EXAMINATION GENERAL: On examination, patient is alert and oriented times 3. HEENT: Normocephalic and atraumatic. Pupils are reactive to light and accommodation. CVS: S1, S2, normal rate of rhythm. LUNGS: Positive for bilateral crackles at the lower bases. ABDOMEN: Nontender, nondistended. EXTREMITIES: Positive for edema. IMAGING STUDIES: Chest x-ray shows multifocal consolidative opacities which appeared to be with pneumonia and alveolar edema. LAB VALUES: White count of 6.16, hemoglobin of 11.4, platelet count is 195,000, neurotrophil count was 87.1. Chemistry: Sodium 131, potassium 4.5, BUN 60, creatinine of 2.4 with an estimated GR of 119. Glucose 246, magnesium 2.7, and total bilirubin is 2.1. TSH was 7.018, lipase 56. ASSESSMENT 1. Questionable pneumonia. 2. Congestive heart failure. 3. Chronic kidney disease, acute kidney injury. 4. Hypothyroidism. 5. Hyperlipidemia. 6. CHF. PLAN: Plan is to continue to monitor the patient. We will continue to diurese the patient. An echocardiogram will be ordered. The patient has been started on antibiotic because of the left shift. The patient has been on Rocephin/azithromycin 1 g q. 12 hours. We will change that to q. 24 hours and azithromycin to 250 mg once a day. We will continue to monitor the patient and check her chest x-ray tomorrow again. Probably discontinue the antibiotics tomorrow. Further recommendation on clinical course. We will also consult renal and we will continue with her apixaban for her atrial fibrillation. Further recommendation on clinical course. We will continue to monitor the patient and possible discharge in 1 to 2 weeks. Job#: [id number] VIVIAN
[2018-03-09 22:52] VITALS: BP 107/66
[2018-03-09 23:00] VITALS: BP 118/73
[2018-03-10] VITALS (7 sets, daily range): BP systolic 117–142; BP diastolic 74–101
[2018-03-10] MEDS: ALBUTEROL/IPRATROPIUM 3 ML NEB NEB SCH ×4 (01:40→19:45)
[2018-03-10 03:04] LABS: CREATINE KINASE 41 IU/L (29-168)
[2018-03-10 05:05] LABS: BASOPHILS % 0.5 % (0.0-1.0); EOSINOPHILS # (AUTO) 0.1 (0.0-0.4); HEMATOCRIT 35.4 % (34.2-44.1); LYMPHOCYTES # (AUTO) 0.3 (1.0-3.2); LYMPHOCYTES % 5.2 % (18.0-39.1); MEAN CORPUSCULAR HEMOGLOBIN 29.2 pg (28-32); MEAN CORPUSCULAR HGB CONC 31.1 g/dL (31-35); MEAN CORPUSCULAR VOLUME 93.9 fL (81-99); MONOCYTES # (AUTO) 0.5 (0.2-0.8); MONOCYTES % 7.2 % (4.4-11.3); NEUTROPHILS # (AUTO) 5.4 (2.1-6.9); NEUTROPHILS % 84.6 % (38.7-80.0); PLATELET COUNT 168 x10e3/uL (140-360); RED BLOOD COUNT 3.77 x10e6/uL (3.6-5.1); RED CELL DISTRIBUTION WIDTH 16.9 % (11.7-14.4)
[2018-03-10] MEDS: METOPROLOL TARTRATE 25 MG TAB PO SCH ×4 (05:24→17:00)
[2018-03-10 05:34] LABS: ALBUMIN 3.5 g/dL (3.5-5.0); ANION GAP 18.6 mmol/L (8-16); CALCIUM 9.2 mg/dL (8.4-10.2); CREATININE, SERUM 2.58 mg/dL (0.57-1.11); POTASSIUM 4.6 mmol/L (3.5-5.1)
[2018-03-10 05:48] LABS: CREATINE KINASE 43 IU/L (29-168)
[2018-03-10] MEDS ORDERED: FUROSEMIDE INJ 10 MG/ML 4 ML VIAL ONE (05:51)
[2018-03-10 05:59] LABS: CREATINE KINASE MB < 1.00 ng/mL (0-4.3)
[2018-03-10] MEDS ORDERED: METOPROLOL TARTRATE INJ 1 MG/ML VIAL ONE (06:07)
[2018-03-10 06:25] LABS: ABG HCO3 20 mmol/L (23-28); ABG PCO2 39 mmHg (41-51); ABG PH 7.31 (7.31-7.41); ABG PO2 114 mmHg (80-105)
[2018-03-10] MEDS ORDERED: DIGOXIN INJ 0.25 MG/ML 2 ML AMP IV ONE (06:30)
--- NOTE | 2018-03-10 08:18 | Diagnostic Imaging Report ---
Examination: Single AP view of the chest. COMPARISON: Portable chest 03/09/2018 INDICATION: Pneumonia, CHF, status post rapid response IMPRESSION: 1. Lines and Tubes: None 2. Diffuse bilateral interstitial opacities likely representing pulmonary edema. 3. Enlarged cardiac silhouette. Central pulmonary venous congestion 4. No acute bony abnormalities. Partially visualized intact orthopedic hardware in the proximal left humerus. Signed by: Dr. Dewey Maldonado M.D. on 03/10/2018 8:15 AM
[2018-03-10] MEDS: INSULIN REGULAR, HUMAN 100 UNIT/1 ML 3ML VIAL SQ SCH ×4 (08:30→20:37)
[2018-03-10] MEDS: SPIRONOLACTONE 25 MG TAB PO SCH (08:42)
[2018-03-10] MEDS: APIXAB 2.5 MG TABLET PO SCH ×2 (08:42→16:22)
[2018-03-10] MEDS: FUROSEMIDE INJ 10 MG/ML 4 ML VIAL IV SCH ×3 (08:42→20:51)
[2018-03-10] MEDS: AZITHROMYCIN 500MG/NS 250 ML 250 ML IV SCH (08:42)
[2018-03-10] MEDS ORDERED: CEFTRIAXONE SOD 1 GM VIAL IV SCH (09:00)
[2018-03-10] MEDS ORDERED: SODIUM CHLORIDE 0.9% 250ML 250 ML ONE (09:37)
[2018-03-10] MEDS: NYSTATIN 100,000 UNITS/GM CRM 30GM TUBE TOP SCH ×2 (09:50→16:24)
[2018-03-10 13:58] LABS: CREATINE KINASE 47 IU/L (29-168)
[2018-03-10 14:14] LABS: ANION GAP 19.2 mmol/L (8-16); CALCIUM 9.3 mg/dL (8.4-10.2); CREATININE, SERUM 2.72 mg/dL (0.57-1.11); POTASSIUM 5.2 mmol/L (3.5-5.1)
--- NOTE | 2018-03-10 19:46 | Consultation ---
DATE OF CONSULTATION: March 10, 2018 REQUESTING PHYSICIAN: Dr. Vega REASON FOR CONSULTATION: CKD. Thank you for allowing us to participate in Ms. Haskins's care. HISTORY OF PRESENT ILLNESS: This is a 72-year-old female with history of known CKD stage 4, intermittent fluid overload, cellulitis, history of being overweight, baseline creatinine runs around 2.5 or so in outpatient records. She is a diabetic. She is on low dose irbesartan generally as well as maintenance Lasix. She does try to avoid salt and water according to her in the past, although more recently she also has secondary hyperparathyroidism and had been on Zemplar. Swelling overall she states feels better. Creatinine at this time has been as high as 3 mg% depending on moderate diuretic needed. PAST HISTORY: Significant for; 1. Chronic kidney disease stage 4. 2. Diabetic neuropathy. 3. Hypertension. 4. Recurrent fluid overload. 5. History of being overweight. 6. Chronic metabolic acidosis. 7. Secondary hyperparathyroidism. 8. Anemia. 9. CKD. 10. Now found to have AFib SOCIAL HISTORY: Does not abuse alcohol. MEDICATIONS: Please see list. FAMILY HISTORY: Diabetes. REVIEW OF SYSTEMS CONSTITUTIONAL: Denied any fever, chills. She did feel weak. GI: No nausea or vomiting. CARDIAC: No angina or syncope. RESPIRATORY: Dyspnea, cough. NEURO: Feels a bit weak. VASCULAR: Has some leg swelling. Rest of review is negative. PHYSICAL EXAMINATION GENERAL: Lying in bed, appears to have some dyspnea. She is on BiPAP. VITAL SIGNS: Temperature 97.4, heart rate 96, sounds are regular, blood pressure 137/78. HEENT: Atraumatic. NECK: Thick. CHEST: Scattered crackles. CARDIAC: Normal heart tones. Irregular rhythm. intermittent tachycardia. EXTREMITIES: 1 to 2+ edema. ABDOMEN: Benign. NEURO: Grossly appropriate. Speech appears normal. Chest x-ray shows fluid overload and congestion. LAB: Hemoglobin is 11, white count 6.3, platelets 168. Sodium 134, K 4.6, serum CO2 of 20, creatinine 2.6, BUN 60. ASSESSMENT 1. Chronic kidney disease stage 4, appears to be within her usual baseline, presumed diabetic nephropathy. 2. Fluid overload/congestive heart failure. 3. Atrial fibrillation. 4. Hyponatremia from the fluid overload. 5. Mild metabolic acidosis. PLAN: We will start diuresing her more aggressively. She has been started on Lasix IV b.i.d. I will increase the dose. A.m. chemistries. Avoid nephrotoxins such as NSAIDs. Keep salt and water restricted. Agree with antibiotic treatment for presumed pneumonia. We will follow along. Job#: [id number] JATINDER
[2018-03-11] VITALS (8 sets, daily range): BP systolic 111–136; BP diastolic 65–85
[2018-03-11] MEDS: METOPROLOL TARTRATE 25 MG TAB PO SCH ×4 (00:02→18:00)
[2018-03-11] MEDS: ALBUTEROL/IPRATROPIUM 3 ML NEB NEB SCH ×4 (02:15→19:40)
[2018-03-11 05:33] LABS: BASOPHILS # (AUTO) 0.1 (0.0-0.1); BASOPHILS % 0.9 % (0.0-1.0); EOSINOPHILS # (AUTO) 0.2 (0.0-0.4); EOSINOPHILS % 2.3 % (0.0-6.0); HEMATOCRIT 34.4 % (34.2-44.1); HEMOGLOBIN 10.6 g/dL (12.0-16.0); LYMPHOCYTES # (AUTO) 0.3 (1.0-3.2); LYMPHOCYTES % 5.1 % (18.0-39.1); MEAN CORPUSCULAR HGB CONC 30.8 g/dL (31-35); MEAN CORPUSCULAR VOLUME 94.2 fL (81-99); MONOCYTES # (AUTO) 0.6 (0.2-0.8); MONOCYTES % 8.8 % (4.4-11.3); NEUTROPHILS # (AUTO) 5.3 (2.1-6.9); NEUTROPHILS % 82.3 % (38.7-80.0); PLATELET COUNT 172 x10e3/uL (140-360); RED BLOOD COUNT 3.65 x10e6/uL (3.6-5.1); RED CELL DISTRIBUTION WIDTH 16.7 % (11.7-14.4)
[2018-03-11 05:59] LABS: ANION GAP 14.7 mmol/L (8-16); CALCIUM 9.3 mg/dL (8.4-10.2); CREATININE, SERUM 2.59 mg/dL (0.57-1.11); MAGNESIUM 2.7 MG/DL (1.3-2.1); PHOSPHORUS 3.8 MG/DL (2.3-4.7); POTASSIUM 4.7 mmol/L (3.5-5.1)
[2018-03-11] MEDS: INSULIN REGULAR, HUMAN 100 UNIT/1 ML 3ML VIAL SQ SCH ×4 (07:30→20:37)
[2018-03-11 08:56] LABS: EOSINOPHILS % (MANUAL) 4 % (0-7); LYMPHOCYTES % (MANUAL) 6 % (19-48); MONOCYTES % (MANUAL) 7 % (3.4-9.0); NEUTROPHILS % (MANUAL) 83 % (40-74)
[2018-03-11 08:57] LABS: PLATELET ESTIMATE ADEQUATE; PLATELET MORPHOLOGY COMMENT NORMAL; RBC MORPHOLOGY COMMENT NORMAL
[2018-03-11] MEDS: FUROSEMIDE INJ 10 MG/ML 4 ML VIAL IV SCH ×3 (09:00→18:00)
[2018-03-11] MEDS: NYSTATIN 100,000 UNITS/GM CRM 30GM TUBE TOP SCH ×2 (09:00→20:13)
[2018-03-11] MEDS: AZITHROMYCIN 500MG/NS 250 ML 250 ML IV SCH (09:20)
[2018-03-11] MEDS: APIXAB 2.5 MG TABLET PO SCH ×2 (09:20→17:21)
[2018-03-11] MEDS: SPIRONOLACTONE 25 MG TAB PO SCH (09:20)
[2018-03-11] MEDS: BISACODYL 5 MG TAB EC PO SCH ×2 (15:00→21:22)
[2018-03-11] MEDS: MEROPENEM 1 GM VIAL IV SCH (20:33)
[2018-03-11] MEDS ORDERED: MEROPENEM 1GRAM 1 GM in SODIUM CHLORIDE 0.9% 100 ML 100 ML IV SCH (21:00)
[2018-03-12] VITALS (10 sets, daily range): BP systolic 120–160; BP diastolic 71–89
[2018-03-12] MEDS: METOPROLOL TARTRATE 25 MG TAB PO SCH ×4 (00:45→17:55)
[2018-03-12] MEDS: ALBUTEROL/IPRATROPIUM 3 ML NEB NEB SCH ×4 (01:34→19:37)
[2018-03-12] MEDS: BISACODYL 5 MG TAB EC PO SCH ×3 (05:15→21:36)
[2018-03-12] MEDS: FUROSEMIDE INJ 10 MG/ML 4 ML VIAL IV SCH (05:25)
[2018-03-12 07:37] LABS: ANION GAP 16.6 mmol/L (8-16); CALCIUM 9.3 mg/dL (8.4-10.2); CREATININE, SERUM 2.48 mg/dL (0.57-1.11); POTASSIUM 4.6 mmol/L (3.5-5.1)
[2018-03-12] MEDS: INSULIN REGULAR, HUMAN 100 UNIT/1 ML 3ML VIAL SQ SCH ×4 (08:10→21:00)
[2018-03-12] MEDS ORDERED: ACETAMINOPHEN 325 MG TAB PO PRN (09:30)
[2018-03-12] MEDS ORDERED: ONDANSETRON HCL 4 MG ORAL DISINTEGRATING TAB PO PRN (09:30)
[2018-03-12] MEDS: APIXAB 2.5 MG TABLET PO SCH ×2 (09:42→17:12)
[2018-03-12] MEDS: SPIRONOLACTONE 25 MG TAB PO SCH (09:42)
[2018-03-12] MEDS: AZITHROMYCIN 500MG/NS 250 ML 250 ML IV SCH (09:42)
[2018-03-12] MEDS: NYSTATIN 100,000 UNITS/GM CRM 30GM TUBE TOP SCH ×2 (09:42→21:34)
[2018-03-12] MEDS ORDERED: LORAZEPAM 0.5 MG TAB PO PRN (11:00)
[2018-03-12] MEDS ORDERED: HYDROCORTISONE 1% CREAM 30 GM TUBE TOP PRN (11:30)
--- NOTE | 2018-03-12 11:45 | Consultation ---
DATE OF CONSULTATION: March 12, 2018 PSYCHIATRIC INITIAL CONSULTATION REASON FOR CONSULTATION: For treatment and evaluation of the patient's depression and suicidal ideation. HISTORY OF PRESENT ILLNESS: The patient is a 73-year-old female who is admitted to [facility] due to multiple medical problems. Psychiatric consult is called to evaluate the patient's mood and suicidal ideation during her inpatient stay. Upon evaluation today, the patient stated she has been feeling increasingly depressed and at times helpless because of her medical health issues. She is stressed because she is not able to do things that she used to do before. A few days before coming to the hospital, the patient felt overwhelmed and helpless and wrote a letter to her family, telling them that she loves them and that she should be buried next to her parents when she dies. The patient denies any suicidal intent prior to writing this letter. She does report that she is feeling overwhelmed but has no intention to kill herself because she believes in Elieser Gagan, and she will never be forgiven if she kills herself. The patient stated she has not been able to sleep and eat very well. She lacks energy. She denies any hallucinations. Denies any major memory problems. The patient is willing to get help and is now working with a social science manager to go to inpatient rehab and to get benefits so that she can get the care that she needs. PAST PSYCHIATRIC HISTORY: The patient stated she has never been treated by a psychiatrist in the past. She has never attempted any suicide. She denies drinking alcohol. She denies abusing any recreational drugs. FAMILY HISTORY: The patient denies any family history of psychiatric illness. SOCIAL HISTORY: The patient has been living alone. She was getting some help from her family, but I understand that was not enough. CURRENT LABS: WBC 6.47, hemoglobin 10.6, hematocrit 34.4, platelets 172. Sodium 137, potassium 4.6, chloride 102, carbon dioxide 23, BUN 63, creatinine 2.48. CURRENT MEDICATIONS 1. Eliquis. 2. Pepcid. 3. Lasix. 4. Metoprolol. 5. Insulin. MENTAL STATUS EXAMINATION: The patient is an elderly, female who is currently lying on her bed. She is alert, awake and oriented to place, person and situation. Her mood is depressed and anxious with blunted affect. She denies any suicidal or homicidal ideation at present. She denies any abnormal perceptions at present. No delusions are elicited. Her thought process is goal directed. Her insight and judgment are limited to fair. IMPRESSION/AXIS I: Major depressive disorder, single episode, moderate. PLAN OF CARE 1. Add Zoloft 25 mg daily. 2. Add Ativan 0.5 mg p.o. t.i.d. p.r.n. for anxiety. 3. Supportive therapy during her inpatient stay. 4. We will continue to follow this patient during her inpatient stay for management of her psychiatric symptoms. Thank you very much for this consult. RUI BAY MD Job#: [id number]
[2018-03-12] MEDS: FAMOTIDINE 20 MG TAB PO SCH ×2 (12:19→17:15)
--- NOTE | 2018-03-12 14:14 | Diagnostic Imaging Report ---
EXAM: Renal Ultrasound INDICATION: NEETU COMPARISON: Renal ultrasound 11/2016. TECHNIQUE: Transverse and longitudinal images of the kidneys and bladder were obtained. FINDINGS: Right Kidney: Length: 10.5 cm Appearance: Increased echogenicity. Collecting system: No hydronephrosis Stones: None Cyst/Mass: None Left Kidney: Length: 10.2 cm Appearance: Increased echogenicity. Collecting system: No hydronephrosis Stones: None Cyst/Mass: Previously noted left renal cyst is not visualized on this study. Bladder: Wood catheter is present within the bladder. IMPRESSION: Increased echogenicity of both kidneys, which may reflect underlying renal dysfunction. No evidence of hydronephrosis. Previously noted benign appearing left renal cyst is not visualized on this study. Signed by: Dr. Murphy Adame MD on 03/12/2018 2:10 PM
[2018-03-12] MEDS: FUROSEMIDE 40 MG TAB PO SCH (17:12)
[2018-03-12] MEDS: MEROPENEM 1 GM VIAL IV SCH (21:34)
[2018-03-13] VITALS (7 sets, daily range): BP systolic 142–187; BP diastolic 78–96
[2018-03-13] MEDS: ALBUTEROL/IPRATROPIUM 3 ML NEB NEB SCH ×4 (01:10→19:10)
[2018-03-13 01:49] LABS: CREATININE,URINE RANDOM 36.16 mg/dL (47-110); TOTAL PROTEIN, URINE 35.4 mg/dL (1-14)
[2018-03-13] MEDS: FUROSEMIDE 40 MG TAB PO SCH ×2 (05:31→17:12)
[2018-03-13 05:56] LABS: BASOPHILS # (AUTO) 0.1 (0.0-0.1); BASOPHILS % 1.3 % (0.0-1.0); EOSINOPHILS # (AUTO) 0.2 (0.0-0.4); EOSINOPHILS % 2.5 % (0.0-6.0); HEMATOCRIT 34.4 % (34.2-44.1); HEMOGLOBIN 10.7 g/dL (12.0-16.0); LYMPHOCYTES # (AUTO) 0.4 (1.0-3.2); LYMPHOCYTES % 5.7 % (18.0-39.1); MEAN CORPUSCULAR HGB CONC 31.1 g/dL (31-35); MEAN CORPUSCULAR VOLUME 96.4 fL (81-99); MONOCYTES # (AUTO) 0.6 (0.2-0.8); MONOCYTES % 8.7 % (4.4-11.3); NEUTROPHILS # (AUTO) 5.4 (2.1-6.9); NEUTROPHILS % 81.2 % (38.7-80.0); PLATELET COUNT 157 x10e3/uL (140-360); RED BLOOD COUNT 3.57 x10e6/uL (3.6-5.1); RED CELL DISTRIBUTION WIDTH 16.4 % (11.7-14.4)
[2018-03-13] MEDS: BISACODYL 5 MG TAB EC PO SCH (06:00)
[2018-03-13 06:09] LABS: ALBUMIN 3.4 g/dL (3.5-5.0); ANION GAP 17.3 mmol/L (8-16); CALCIUM 9.4 mg/dL (8.4-10.2); CREATININE, SERUM 2.63 mg/dL (0.57-1.11); POTASSIUM 4.3 mmol/L (3.5-5.1)
[2018-03-13] MEDS: METOPROLOL TARTRATE 25 MG TAB PO SCH ×4 (06:16→17:12)
[2018-03-13] MEDS: INSULIN REGULAR, HUMAN 100 UNIT/1 ML 3ML VIAL SQ SCH ×4 (08:30→21:00)
[2018-03-13] MEDS: SERTRALINE HCL 50 MG TAB PO SCH (08:54)
[2018-03-13] MEDS: BALSAM PERU/CASTOR OIL 5 GM OINT...G. TP SCH (08:54)
[2018-03-13] MEDS: APIXAB 2.5 MG TABLET PO SCH ×2 (08:54→16:01)
[2018-03-13] MEDS: NYSTATIN 100,000 UNITS/GM CRM 30GM TUBE TOP SCH ×2 (08:54→21:00)
[2018-03-13] MEDS ORDERED: BISACODYL 5 MG TAB EC PO PRN (10:45)
[2018-03-13] MEDS: FAMOTIDINE 20 MG TAB PO SCH ×2 (11:57→16:01)
[2018-03-13] MEDS: CLONIDINE HCL 0.1 MG TAB PO PRN (17:12)
[2018-03-13] MEDS: MEROPENEM 1 GM VIAL IV SCH (21:46)
[2018-03-14] VITALS: BP 191/86
[2018-03-14] MEDS: METOPROLOL TARTRATE 25 MG TAB PO SCH ×3 (00:52→12:00)
[2018-03-14] MEDS: CLONIDINE HCL 0.1 MG TAB PO PRN (00:53)
[2018-03-14] MEDS: ALBUTEROL/IPRATROPIUM 3 ML NEB NEB SCH ×3 (02:10→13:00)
[2018-03-14 04:00] VITALS: BP 164/90
[2018-03-14] MEDS: FUROSEMIDE 40 MG TAB PO SCH (05:22)
[2018-03-14 05:58] LABS: ANION GAP 18.3 mmol/L (8-16); CALCIUM 9.6 mg/dL (8.4-10.2); CREATININE, SERUM 2.46 mg/dL (0.57-1.11); POTASSIUM 4.3 mmol/L (3.5-5.1)
[2018-03-14 08:00] VITALS: BP 169/86
[2018-03-14] MEDS: SERTRALINE HCL 50 MG TAB PO SCH (08:30)
[2018-03-14] MEDS: FAMOTIDINE 20 MG TAB PO SCH (08:30)
[2018-03-14] MEDS: APIXAB 2.5 MG TABLET PO SCH (08:30)
[2018-03-14] MEDS: INSULIN REGULAR, HUMAN 100 UNIT/1 ML 3ML VIAL SQ SCH ×3 (08:30→16:21)
[2018-03-14] MEDS ORDERED: TRIMETHOPRIM/SULFAMETHOXAZOLE 160-800 MG TAB PO SCH (09:00)
[2018-03-14 12:00] VITALS: BP 146/94
[2018-03-14] MEDS: NYSTATIN 100,000 UNITS/GM CRM 30GM TUBE TOP SCH (12:30)
[2018-03-14] MEDS: BALSAM PERU/CASTOR OIL 5 GM OINT...G. TP SCH (12:30)
--- NOTE | 2018-03-14 12:52 | Progress Note ---
DATE: March 14, 2018 NEPHROLOGY PROGRESS NOTE SUBJECTIVE: Seen on nephrology followup. Her breathing is better. Swelling is much improved. OBJECTIVE VITAL SIGNS: Temperature is 96.7. Pulse 107, sounds regular. Blood pressure is 144/90. HEENT: Grossly atraumatic. NECK: Unable to see JVD. CHEST: Clear with diminished breath sounds at the very bases. CARDIAC: Normal heart tones. EXTREMITIES: Trace to no edema. Serum CO2 24, potassium 4.3, creatinine 2.46, BUN 66. ASSESSMENT: Chronic kidney disease stage 4. Presumed diabetic nephropathy. Fluid overload is now controlled. Appears to be close to baseline based on outpatient records in terms of her renal function. Debility. To go to the [facility] facility. PLAN: From a renal standpoint, stay on current dose of Lasix. Keep salt and fluid restricted. She is currently on 40 mg b.i.d. Would check labs in about a month to ensure that we are not overdiuresing. Then subsequently have followup in the renal office in about 8 to 10 weeks given that she still remains at baseline. Will follow along. Sincerely, Job#: [id number] TIRSO
[2018-03-14] MEDS ORDERED: METOPROLOL TARTRATE 25 MG TAB PO SCH (14:00)
--- NOTE | 2018-03-14 19:14 | Progress Note ---
DATE: March 14, 2018 PSYCHIATRIC PROGRESS NOTE The patient was evaluated and events noted. INTERVAL HISTORY: Patient is currently lying on her bed. She is calm and cooperative. She is alert, awake and oriented to situation. She denies feeling depressed or anxious. She claims that she is sleeping and eating well. She denies any hallucinations and/or any suicidal ideations. She is taking her medications and denies any side effects from her medications. IMPRESSION: Major depressive disorder, single episode, moderate. PLAN OF CARE: Continue Zoloft. Continue p.r.n. Ativan. Supportive therapy during inpatient stay. Job#: [id number] DORIAN
--- NOTE | 2018-03-26 00:39 | Discharge Summary ---
This patient came in with AFib with RVR, rate 136. Patient also had CHF exacerbation, respiratory distress. A consult with Dr. Matthesw was done. Patient also had questionable history of pneumonia, which she was started on azithromycin and Rocephin for AFib. Apixaban was started back at 2.5 mg twice a day because of creatinine function of 2.58. Daily weight, low-salt diet, and antihypertensives were started. The patient's echo showed EF of 30% to 35% and patient had an issue with family dynamics, and also, a suicide note was found in the chart. Consult with Dr. Wilcox was done and also, Dr. Chapincito Romano was done too. Patient was kept on BiPAP for her decreased oxygen saturation. A consult was SNF was done and the patient was discharged to SNF. Patient was put also on antidepressive medication for the questionable suicide ideation and depression, and with her debility, it was decided that the patient go to a SNF unit. Patient also had UTI, showed ESBL, was on Merrem, and the patient was discharged to a SNF in a stable condition. FINAL DIAGNOSES ON DISCHARGE 1. Congestive heart failure, compensated. 2. Acute renal injury in the setting of chronic kidney disease. 3. Atrial fibrillation with rapid ventricular response. 4. Urinary tract infection, extended spectrum beta-lactamase. 5. Morbid obesity, questionable obstructive sleep apnea. 6. Suicidal ideation and depression. Patient was asked to follow up with the doctor at the SNF and to come back to see Dr. Perez was her primary care physician once discharged from SNF. For further information, look in the chart. For medicines on discharge, look in the medical reconciliation sheet. HALEY NAJERA MD Job#: [id number]
== END 2018-03-14 17:10 | DRG 291 ==
LOC: ER 09:10 → ERHOLD 12:11 → MED/SURG2 22:42 → IMCU 03-10 09:25 → MED/SURG3 03-13 14:55
PROVIDERS: ADMIT Family Medicine; ATTEND Family Medicine
DX: I13.0 Hypertensive heart and chronic kidney disease with heart failure and stage 1 through stage 4 chronic kidney disease, or unspecified chronic kidney disease (principal); J18.9 Pneumonia, unspecified organism; I50.23 Acute on chronic systolic (congestive) heart failure; N18.4 Chronic kidney disease, stage 4 (severe); N17.9 Acute kidney failure, unspecified; N25.81 Secondary hyperparathyroidism of renal origin; E87.2 Acidosis; E87.1 Hypo-osmolality and hyponatremia; F32.1 Major depressive disorder, single episode, moderate; Z68.41 Body mass index [BMI] 40.0-44.9, adult; N39.0 Urinary tract infection, site not specified; R45.851 Suicidal ideations; I48.91 Unspecified atrial fibrillation; E03.9 Hypothyroidism, unspecified; E66.01 Morbid (severe) obesity due to excess calories; D63.8 Anemia in other chronic diseases classified elsewhere; R53.81 Other malaise; B35.6 Tinea cruris; E11.22 Type 2 diabetes mellitus with diabetic chronic kidney disease; E78.5 Hyperlipidemia, unspecified; Z79.01 Long term (current) use of anticoagulants; Z79.4 Long term (current) use of insulin; E11.42 Type 2 diabetes mellitus with diabetic polyneuropathy; R06.03 Acute respiratory distress; L89.311 Pressure ulcer of right buttock, stage 1; Z16.12 Extended spectrum beta lactamase (ESBL) resistance; B96.1 Klebsiella pneumoniae [K. pneumoniae] as the cause of diseases classified elsewhere
CPT/HCPCS: 36415; 51700; 71045; 76770; 80048; 80053; 81001; 82550; 82553; 82570; 82805; 82948; 83690; 83735; 83880; 84100; 84156; 84443; 84484; 85025; 87040; 87086; 87186; 87400; 93005; 93306; 94640; 94660; 96361; 96372; 97139; 99284; J0456; J0696; J1160; J1450; J1940; J2185; J7050

== ENCOUNTER 2018-05-14 13:08 | Inpatient (IN) | payer MEDICARE, OTHER ==
[~2018-05-14] VITALS: Ht 170.2 cm; Wt 138.8 kg
[~2018-05-14 13:08] MED LIST changes: +ELIQUIS PO; +HYDRALAZINE HCL25 MG PO; +IRBESARTAN75 MG PEG; +ZEMPLAR1 MCG PO
--- NOTE | 2018-05-14 15:56 | Diagnostic Imaging Report ---
EXAMINATION: CHEST SINGLE (NOT PORTABLE) INDICATION: ^ERMD ORDER ^[id number] ^1515 ^Y COMPARISON: 03/10/2018 FINDINGS: AP view Limited by body habitus and low lung volumes. TUBES and LINES: None. LUNGS: Pulmonary vascular congestion and mild interstitial edema, improved from prior x-ray. PLEURA: No visible pneumothorax. HEART AND MEDIASTINUM: The cardiomediastinal silhouette is enlarged. BONES AND SOFT TISSUES: No acute osseous lesion. Soft tissues are unremarkable. UPPER ABDOMEN: No free air under the diaphragm. IMPRESSION: Enlarged cardiomediastinal silhouette, pulmonary vascular congestion, and mild interstitial edema. There are also small bilateral pleural effusions. Underlying infiltrate in the left lower lung field cannot be excluded. Signed by: Dr. Mynor Beckwith MD on 05/14/2018 3:53 PM
[2018-05-14 18:40] LABS: BASOPHILS % 0.6 % (0.0-1.0); EOSINOPHILS # (AUTO) 0.4 (0.0-0.4); EOSINOPHILS % 8.4 % (0.0-6.0); HEMATOCRIT 37.1 % (34.2-44.1); HEMOGLOBIN 11.5 g/dL (12.0-16.0); LYMPHOCYTES # (AUTO) 0.3 (1.0-3.2); LYMPHOCYTES % 6.5 % (18.0-39.1); MEAN CORPUSCULAR HEMOGLOBIN 30.4 pg (28-32); MEAN CORPUSCULAR VOLUME 98.1 fL (81-99); MONOCYTES # (AUTO) 0.4 (0.2-0.8); MONOCYTES % 6.9 % (4.4-11.3); NEUTROPHILS # (AUTO) 4.1 (2.1-6.9); NEUTROPHILS % 77.2 % (38.7-80.0); PLATELET COUNT 130 x10e3/uL (140-360); RED BLOOD COUNT 3.78 x10e6/uL (3.6-5.1); RED CELL DISTRIBUTION WIDTH 15.2 % (11.7-14.4)
--- NOTE | 2018-05-14 18:48 | NUR ---
pt left arm more swollen than right arm per pt she had arm injury previously
[2018-05-14 18:57] LABS: ALBUMIN 3.6 g/dL (3.5-5.0); ALBUMIN/GLOBULIN RATIO 0.9 (0.8-2.0); ANION GAP 15.7 mmol/L (8-16); CALCIUM 9.2 mg/dL (8.4-10.2); CREATININE, SERUM 2.35 mg/dL (0.57-1.11); POTASSIUM 3.7 mmol/L (3.5-5.1)
[2018-05-14 19:00] LABS: INR 1.24; PROTHROMBIN TIME 16.7 seconds (11.9-14.5)
[2018-05-14 19:01] LABS: PARTIAL THROMBOPLASTIN TIME 37.7 seconds (23.8-35.5)
[2018-05-14 19:04] LABS: CREATINE KINASE MB 1.4 ng/mL (0-5.0)
[2018-05-14] MEDS ORDERED: SODIUM CHLORIDE FLUSH 10 ML SYR INJ PRN (20:15)
[2018-05-14 21:48] LABS: EOSINOPHILS % (MANUAL) 10 % (0-7); LYMPHOCYTES % (MANUAL) 4 % (19-48); MONOCYTES % (MANUAL) 7 % (3.4-9.0); NEUTROPHILS % (MANUAL) 78 % (40-74)
[2018-05-14 21:50] LABS: ANISOCYTOSIS SLIGHT; HYPOCHROMASIA SLIGHT; PLATELET ESTIMATE SLIGHTLY DECREASED; PLATELET MORPHOLOGY COMMENT FEW LARGE; RBC MORPHOLOGY COMMENT NORMAL
[2018-05-15] VITALS (9 sets, daily range): BP systolic 82–173; BP diastolic 54–99
[2018-05-15 05:25] LABS: BASOPHILS # (AUTO) 0.1 (0.0-0.1); BASOPHILS % 1.1 % (0.0-1.0); EOSINOPHILS # (AUTO) 0.4 (0.0-0.4); EOSINOPHILS % 9.1 % (0.0-6.0); HEMATOCRIT 34.7 % (34.2-44.1); HEMOGLOBIN 10.7 g/dL (12.0-16.0); LYMPHOCYTES # (AUTO) 0.4 (1.0-3.2); LYMPHOCYTES % 7.8 % (18.0-39.1); MEAN CORPUSCULAR HEMOGLOBIN 30.1 pg (28-32); MEAN CORPUSCULAR HGB CONC 30.8 g/dL (31-35); MEAN CORPUSCULAR VOLUME 97.7 fL (81-99); MONOCYTES # (AUTO) 0.4 (0.2-0.8); MONOCYTES % 7.8 % (4.4-11.3); NEUTROPHILS # (AUTO) 3.5 (2.1-6.9); PLATELET COUNT 103 x10e3/uL (140-360); RED BLOOD COUNT 3.55 x10e6/uL (3.6-5.1); RED CELL DISTRIBUTION WIDTH 14.8 % (11.7-14.4)
--- NOTE | 2018-05-15 05:28 | NUR ---
Administered Lasix 100 mg... Patient has put out only 300 mL urine. Checked arnold for kinks and is draining slowly. Will continue to monitor.
[2018-05-15 06:14] LABS: CREATINE KINASE MB 1.4 ng/mL (0-5.0)
[2018-05-15 06:35] LABS: ANION GAP 15.8 mmol/L (8-16); CALCIUM 8.8 mg/dL (8.4-10.2); CREATININE, SERUM 2.24 mg/dL (0.57-1.11); POTASSIUM 3.8 mmol/L (3.5-5.1)
--- NOTE | 2018-05-15 06:50 | Diagnostic Imaging Report ---
EXAMINATION: CHEST SINGLE (PORTABLE) INDICATION: CHF COMPARISON: 05/14/2018 FINDINGS: AP view TUBES and LINES: None. LUNGS: Lungs are well inflated. Stable edema. PLEURA: Small bilateral pleural effusions. HEART AND MEDIASTINUM: Stable enlargement. BONES AND SOFT TISSUES: Stable. Partially visualized left humeral hardware. UPPER ABDOMEN: No free air under the diaphragm. IMPRESSION: No significant change from 05/14/2018. Stable edema and small pleural effusions. Signed by: DR. Aleks Greer MD on 05/15/2018 6:46 AM
--- NOTE | 2018-05-15 08:15 | NUR ---
Received pt in bed with eyes closed. Easily arouses with verbal stimuli. Denies any pain at this time. Denies SOB at this she is on 02 3L/NC. Breaths are even and unlabored. Pt being transferred to -111 at 0815 and report given to nurse accepting pt in room 111.
--- NOTE | 2018-05-15 08:20 | NUR ---
PATIENT RECEIVED FROM [facility] PER STRETCHER. ALERT AND VERBALLY RESPONSIVE, SKIN WARM AND DRY TO TOUCH WITH RASH ALL OVER THE BODY, MOSTLY ON UPPER EXTREMITIES, REDNESS TO GROIN. +4 EDEMA TO LOWER EXTREMITIES. REFUSED TO BE TURNED STATING " I AM TIRED". ALANIZ CATHETER WITH CLEAR YELLOW URINE. BED IN LOWER POSITION, CALL LIGHT AT REACH.
[2018-05-15] MEDS ORDERED: LEVOTHYROXINE SODIUM 100 MCG TAB PO SCH (09:00)
[2018-05-15] MEDS: PARICALCITOL PO SCH (09:00)
[2018-05-15] MEDS ORDERED: FENOFIBRIC ACID 135 MG PO SCH (09:00)
[2018-05-15] MEDS ORDERED: FUROSEMIDE INJ 10 MG/ML 4 ML VIAL IV SCH (09:00)
[2018-05-15] MEDS ORDERED: IRBESARTAN 75 MG PEG SCH (09:00)
[2018-05-15] MEDS ORDERED: NON-FORMULARY MEDICATION ([Eliquis] 2.5 MG) PO SCH (09:00)
[2018-05-15] MEDS ORDERED: INSULIN DETEMIR 100 UNIT/ML PEN SQ SCH (09:00)
[2018-05-15] MEDS ORDERED: PARICALCITOL PO SCH (09:00)
[2018-05-15] MEDS: HYDRALAZINE HCL 25 MG TAB PO SCH ×2 (09:30→17:43)
[2018-05-15] MEDS: APIXAB 2.5 MG TABLET PO SCH ×2 (09:30→17:43)
[2018-05-15] MEDS: SPIRONOLACTONE 25 MG TAB PO SCH (09:30)
[2018-05-15] MEDS: ASPIRIN 81 MG CHEW TAB PO SCH (09:30)
[2018-05-15] MEDS: IRBESARTAN 150 MG TAB PEG SCH (09:30)
[2018-05-15] MEDS: CLONIDINE HCL 0.2 MG TAB PO SCH ×2 (09:30→17:43)
[2018-05-15] MEDS: NIFEDIPINE CR 30 MG TAB PO SCH (09:30)
[2018-05-15] MEDS: FENOFIBRATE 145 MG TAB PO SCH (09:30)
[2018-05-15] MEDS: METOPROLOL TARTRATE 25 MG TAB PO SCH ×2 (09:30→17:43)
[2018-05-15] MEDS: FUROSEMIDE 40 MG TAB PO SCH ×2 (09:30→17:43)
--- NOTE | 2018-05-15 11:35 | NUR ---
PATIENT IN BED RESTING WITH EYES CLOSED, NO RESPIRATORY DISTRESS OBSERVED. BED IN LOWER POSITION, CALL LIGHT AT REACH.
--- NOTE | 2018-05-15 13:37 | NUR ---
SOCIAL WORK INITIAL ASSESSMENT Regional Owner Operator Truck Driver to bedside to discuss plan of care with patient/family. CM/SW role and care transitions discussed. Anticipated discharge plan discussed along with duration of care. CM/SW discussed patients right to make decisions in care. CM/SW work hours given. Patient lives: AT [facility] Admit/Transfer: VIA ED POA/Emergency contact: BROTHER SHEFALI [phone] Current/Previous Home Health: NONE PCP/Follow-up Care: TAYA AT [facility] Current/Previous DME: [employer] Other Services: NONE Employment Status: NONE Areas of Concerns: NONE Referral Needs: NONE Education Needs: NONE IMM/VERAS given and signed (if applicable): NA Goal for discharge:DISCHARGE BACK TO [facility] CM/SW left business card at the bedside with contact information. Name and number was also written on the patients whiteboard. Patient verbalized understanding of discussion. CM will follow-up with ongoing discharge and transition of care needs.
[2018-05-15 13:59] LABS: CREATINE KINASE MB 1.4 ng/mL (0-5.0)
--- NOTE | 2018-05-15 16:18 | NUR ---
CATHETER CARE PROVIDED, REPOSITIONED IN BED. BED IN LOWER POSITION, CALL LIGHT AT REACH.
--- NOTE | 2018-05-15 19:05 | NUR ---
received patient resting in bed, aaox3, no distress observed. no needs voiced. bed locked and in lowest position, call light within easy reach. encouraged to call for assistance, verbalized understanding. will continue to monitor closely.
--- NOTE | 2018-05-15 20:47 | NUR ---
MD AWARE OF LOW BP. PATIENT IS ASYMPTOMATIC, DENIES DIZZINESS OR LIGHT HEADEDNESS. PATIENT IS AAOX4 AT THIS TIME. NO NEW ORDERS RECEIVED, CONTINUE TO MONITOR PATIENT.
[2018-05-16] VITALS (9 sets, daily range): BP systolic 99–111; BP diastolic 51–64
--- NOTE | 2018-05-16 00:50 | NUR ---
Repositioned to left side for comfort. patient refusing alt. pressure pump at this time.
[2018-05-16] MEDS: LEVOTHYROXINE SODIUM 100 MCG TAB PO SCH (06:10)
--- NOTE | 2018-05-16 07:00 | Progress Note ---
DATE: Patient is here for CHF exacerbation, shortness of breath and . Patient also has swelling in the lower extremities and tenderness when walking. Cannot ambulate because of shortness of breath. Has no orthopnea. No PND either. OBJECTIVE VITAL SIGNS: Temperature is 96.6, pulse 73, respirations of 18, blood pressure is 108/51 and had dropped down to 82/54 yesterday. HEENT: Normocephalic and atraumatic. Pupils are reactive to light and accommodation. CV: S1 and S2 irregular. Positive for S3. LUNGS: Positive for crackles in bilateral lower bases. ABDOMEN: Nontender and nondistended. EXTREMITIES: Positive for 2+ edema. LABORATORY VALUES: From today, white count was 4.72, hemoglobin of 10.7, hematocrit of 34.7. Neutrophil count 74. Chemistry: Sodium is 142, potassium is 3.8, BUN is 71, creatinine of 2.24 with a GFR of 22. Glucose of 145. MEDICATIONS: She is on: 1. Levothyroxine 100 mcg. 2. Eliquis 2.5 mg twice a day. 3. Metoprolol 25 mg twice a day. 4. Hydralazine 25 mg b.i.d. 5. Lasix 40 mg twice a day. 6. Clonidine 0.2 mg b.i.d. 7. 75 mg. 8. Fenofibrate 145 mg. 9. Nifedipine 90 mg. 10. Insulin Levemir 60 units at nighttime. 11. Aspirin 81 mg. 12. Aldactone 25 mg. 13. Nystatin 1 g twice a day. Chest x-ray from admission shows stable cardiomegaly and pulmonary effusion. MICROBIOLOGY: None has been done. ASSESSMENT 1. Congestive heart failure: Will switch the patient to intravenous Lasix 40 mg twice a day. Hold off on the clonidine and hydralazine at this time. Continue monitoring her electrolytes. 2. Chronic kidney disease and acute kidney injury: Continue monitoring her creatinine on a daily basis. Diuresis will continue. 3. Debility: Will need physical therapy. Will order it. 4. Diabetes mellitus. 5. Atrial fibrillation: Rate controlled. 6. Obesity. 7. Hypertension: Will hold off on some of the medications at this time. Further recommendations per clinical course. Will continue monitoring electrolytes. Also, physical therapy will be ordered. Will keep the patient in for 1-2 days for gentle diuresis. Job#: [id number] DORIAN
--- NOTE | 2018-05-16 07:46 | NUR ---
BSG 68. Pt AOx4, neuro is intact; able to verbalize needs. Hudspeth juice given. Pt tolerated well.
[2018-05-16] MEDS: PARICALCITOL PO SCH (09:00)
[2018-05-16] MEDS: SPIRONOLACTONE 25 MG TAB PO SCH (09:40)
[2018-05-16] MEDS: APIXAB 2.5 MG TABLET PO SCH ×2 (09:40→17:20)
[2018-05-16] MEDS: IRBESARTAN 150 MG TAB PEG SCH (09:40)
[2018-05-16] MEDS: FUROSEMIDE INJ 10 MG/ML 4 ML VIAL IV SCH ×2 (09:40→21:53)
[2018-05-16] MEDS: ASPIRIN 81 MG CHEW TAB PO SCH (09:40)
[2018-05-16] MEDS: NYSTATIN 15 GM POWDER UD BTL TOP SCH ×2 (09:41→17:14)
[2018-05-16] MEDS: NIFEDIPINE CR 30 MG TAB PO SCH (09:41)
[2018-05-16] MEDS: FENOFIBRATE 145 MG TAB PO SCH (09:41)
[2018-05-16] MEDS: METOPROLOL TARTRATE 25 MG TAB PO SCH ×2 (09:41→17:20)
--- NOTE | 2018-05-16 09:43 | NUR ---
Dr. Vega made aware of pt BSG of 68. Orders rec'd.
--- NOTE | 2018-05-16 10:06 | NUR ---
40 UNITS OF LEVEMIR ADMINISTERED AT 1000, WITNESSED BY PAMELA ELLIOTT RN.
--- NOTE | 2018-05-16 16:03 | NUR ---
WOUND CARE CONSULTATION - INITIAL EVAL AND RECOMMENDATION Patient is a 73 year-old female, [facility] resident admitted with Generalized Edema, SOB, CHF and CKD. Patient has a history of CHF, DM type II, A-Fib, CKD. Head to toe assessment performed. Patient verbalized she had a left shoulder injury and has had discomfort for some time. Able to turn with assistance to left side. BLE Edema +3. Noted generalized lesions/ scratches throughout body. Self-inflicted scabbed wounds secondary to itching. No pressure ulcers identified. Patient presents with yeast to left abdominal fold (9x10x0.1 cm) and right flank (20 x20x <0.1 cm). Patient already on Nystatin Powder BID. 1. Left abdominal fold (9x10x0.1 cm) - Yeast - Nystatin Powder BID 2. Right flank (20 x20x <0.1 cm).-Yeast - Nystatin Powder BID LABS: WBC4.72 Hgb10.7 Hct34.7 [id number] IMAGING: CXR - Pulmonary Effusion MICRO: None RECOMMENDATION; 1. Left abdominal fold (9x10x0.1 cm) - Yeast - - WASH area with SOAP and Water then Pat Dry Thoroughly. Then Continue Nystatin Powder and Cover with Maxsorb Ag+ BID 2. Right flank (20 x20x <0.1 cm).-Yeast - WASH area with SOAP and Water then Pat Dry Thoroughly. Then Continue Nystatin Powder and Cover with Maxsorb Ag+ BID 3. NO LINEN CHUX PLEASE / OK to use EXTRASORB Underpad. 4. Turn and Reposition every 2 hours Please. 5. Bilateral Heel Protectors / Offload heels with Pillows while in bed. 6. Continue using Alternating ANNE Air mattress. Tank you for the consultation. Addendum: 05/16/18 at 1619 by Dk Strauss RN Amended: Links added.
[2018-05-17 04:00] VITALS: BP 111/51
[2018-05-17] MEDS: LEVOTHYROXINE SODIUM 100 MCG TAB PO SCH (06:00)
[2018-05-17 06:14] LABS: BASOPHILS % 0.6 % (0.0-1.0); EOSINOPHILS # (AUTO) 0.5 (0.0-0.4); EOSINOPHILS % 10.1 % (0.0-6.0); HEMATOCRIT 32.1 % (34.2-44.1); HEMOGLOBIN 9.9 g/dL (12.0-16.0); LYMPHOCYTES # (AUTO) 0.4 (1.0-3.2); LYMPHOCYTES % 7.6 % (18.0-39.1); MEAN CORPUSCULAR HEMOGLOBIN 30.4 pg (28-32); MEAN CORPUSCULAR HGB CONC 30.8 g/dL (31-35); MEAN CORPUSCULAR VOLUME 98.5 fL (81-99); MONOCYTES # (AUTO) 0.4 (0.2-0.8); MONOCYTES % 8.5 % (4.4-11.3); NEUTROPHILS # (AUTO) 3.8 (2.1-6.9); NEUTROPHILS % 72.8 % (38.7-80.0); PLATELET COUNT 118 x10e3/uL (140-360); RED BLOOD COUNT 3.26 x10e6/uL (3.6-5.1)
[2018-05-17 06:33] LABS: ANION GAP 13.4 mmol/L (8-16); CALCIUM 8.4 mg/dL (8.4-10.2); CREATININE, SERUM 2.81 mg/dL (0.57-1.11); POTASSIUM 4.4 mmol/L (3.5-5.1)
--- NOTE | 2018-05-17 06:45 | NUR ---
HANDOFF REPORT REC'D DURING WALKING ROUNDS WITH OUTGOING CLOTHING ROOM SUPERVISOR NURSE. PT AWAKE AT THIS TIME AND DENIES ANY C/O. CALL LIGHT IS IN REACH.
[2018-05-17 06:53] LABS: EOSINOPHILS % (MANUAL) 5 % (0-7); LYMPHOCYTES % (MANUAL) 8 % (19-48); MONOCYTES % (MANUAL) 6 % (3.4-9.0); NEUTROPHILS % (MANUAL) 81 % (40-74); PLATELET ESTIMATE SLIGHTLY DECREASED; RBC MORPHOLOGY COMMENT NORMAL
[2018-05-17 06:54] LABS: PLATELET MORPHOLOGY COMMENT FEW LARGE
--- NOTE | 2018-05-17 06:54 | Progress Note ---
DATE: Patient here for CHF exacerbation, acute kidney injury and complains of dyspnea. Patient is not orthopneic. No PND today. Did have a bowel movement yesterday. Complains of shortness of breath and weakness. MEDICATIONS: She takes are: 1. Eliquis 2.5 mg twice a day. 2. Aspirin once a day. 3. Clonidine p.r.n. 4. Fenofibrate. 5. Furosemide. 6. Insulin. 7. Avapro. 8. Levothyroxine. 9. Metoprolol. 10. Nifedipine. 11. Zemplar. OBJECTIVE VITAL SIGNS: Today, blood pressure is 111/51, temperature is 97.5, pulse of 76, respirations of 18, and pulse oximetry 100% on 2 L of nasal cannula. HEENT: Normocephalic and atraumatic. CV: S1 and S2 regular. ABDOMEN: Nontender and nondistended. EXTREMITIES: Positive for 2+ edema. INTEGUMENT: The patient has multiple excoriations on the face and also on the chest wall. Has pruritic lesions throughout the anterior chest wall. LABORATORY VALUES: Today's white count is 5.16, hemoglobin of 9.9, hematocrit of 32.1. Coags normal on May 14, 2018. D-dimer was 3.61. Chemistries are pending. Other chemistry showed a potassium of 3.8, BUN of 71, creatinine of 2.24. IMAGING STUDIES: Chest x-ray is stable with pleural effusions. ASSESSMENT 1. Congestive heart failure: Continue with intravenous Lasix 40 mg. The patient's blood pressure is normal. Will restart her clonidine and hydralazine as needed. 2. Chronic kidney disease: Ultrasound of the kidneys and also nephrology consult. The patient comes back with congestive heart failure and volume overload on a regular basis. Will consult nephrology for future care. 3. Debility: Will need physical therapy. 4. Diabetes mellitus: Will continue on Levemir. 5. Atrial fibrillation: Rate controlled and also on anticoagulation. 6. Hypertension: Will continue monitoring the patient. Further recommendations per clinical course. Will continue monitoring the patient. Also, follow up with consult for nephrology. Job#: [id number] NM
[2018-05-17 08:18] VITALS: BP 113/59
[2018-05-17] MEDS: NIFEDIPINE CR 30 MG TAB PO SCH (09:00)
[2018-05-17] MEDS: APIXAB 2.5 MG TABLET PO SCH ×2 (09:00→16:30)
[2018-05-17] MEDS: INSULIN DETEMIR 100 UNIT/ML PEN SQ SCH (09:00)
[2018-05-17] MEDS: FUROSEMIDE INJ 10 MG/ML 4 ML VIAL IV SCH (09:00)
[2018-05-17] MEDS: FENOFIBRATE 145 MG TAB PO SCH (09:00)
[2018-05-17] MEDS: IRBESARTAN 150 MG TAB PEG SCH (09:00)
[2018-05-17] MEDS: SPIRONOLACTONE 25 MG TAB PO SCH (09:00)
[2018-05-17] MEDS: ASPIRIN 81 MG CHEW TAB PO SCH (09:00)
[2018-05-17] MEDS: PARICALCITOL PO SCH (09:00)
[2018-05-17] MEDS: NYSTATIN 15 GM POWDER UD BTL TOP SCH ×2 (10:12→18:04)
[2018-05-17] MEDS: METOPROLOL TARTRATE 25 MG TAB PO SCH ×2 (10:12→16:30)
[2018-05-17 13:00] VITALS: BP 110/56
--- NOTE | 2018-05-17 14:21 | Consultation ---
DATE OF CONSULTATION: May 17, 2018 A 73-year-old female known to our nephrology service with underlying history CKD, 4. Presented with increased swelling and generalized body edema. Currently, laying supine. No apparent distress. PAST MEDICAL HISTORY: Significant for type 2 diabetes, chronic kidney disease, stage 4, hypertension. Follows up in our office on a regular basis. Recent pneumonia, history of atrial fibrillation, hypothyroidism, history of congestive heart failure. ALLERGIES: NO KNOWN DRUG ALLERGIES. CURRENT MEDICATIONS 1. Clonidine 0.2 mg b.i.d. 2. Spironolactone 25 mg daily. 3. Apixaban 2.5 mg b.i.d. 4. Nystatin. 5. Metoprolol 25 mg b.i.d. 6. Irbesartan 75 mg daily. 7. Furosemide 40 mg IV q.12 h. 8. Nifedipine 90 mg daily. 9. Insulin. 10. Fenofibrate. 11. Levothyroxine. SOCIAL HISTORY: Does not smoke or drink. PHYSICAL EXAMINATION GENERAL: Awake, alert and laying supine. No apparent distress. VITALS: Blood pressure 130/60, pulse 80. HEENT: Normocephalic. HEART: S1 and S2 audible. LUNGS: Decreased air entry with scattered rales. ABDOMEN: Soft and nontender. LOWER EXTREMITY EXAMINATION: Two plus edema. Upper extremity with 1+ edema. Flank and abdominal wall 1+ edema. IMPRESSION AND PLAN 1. Generalized body edema and fluid overload. 2. Ijsah-my-zlxajsb kidney failure. 3. Anemia, multifactorial. INR 1.24. Potassium 4.4, bicarb 26, creatinine 2.8. Plan on discontinuing fenofibrate for its risk for side effects of kidney failure. Will discontinue Lasix. Discontinue Aldactone. Discontinue irbesartan. Will monitor blood pressure. Diurese with Bumex around the clock, as well as metolazone. Obtain spot urine protein and creatinine ratio. No acute indications for dialysis. See orders. Job#: [id number] DORIAN
[2018-05-17] MEDS: BUMETANIDE INJ 0.25MG/ML 4ML VIAL IV SCH ×2 (16:00→23:05)
[2018-05-17 17:34] VITALS: BP 113/54
[2018-05-17 19:35] VITALS: BP 108/65
[2018-05-17 20:36] VITALS: BP 108/65
[2018-05-18] VITALS (9 sets, daily range): BP systolic 93–137; BP diastolic 50–74
[2018-05-18] MEDS: LEVOTHYROXINE SODIUM 100 MCG TAB PO SCH (05:23)
[2018-05-18] MEDS: BUMETANIDE INJ 0.25MG/ML 4ML VIAL IV SCH ×3 (05:23→21:42)
[2018-05-18 06:01] LABS: BASOPHILS % 0.4 % (0.0-1.0); EOSINOPHILS # (AUTO) 0.7 (0.0-0.4); EOSINOPHILS % 10.6 % (0.0-6.0); HEMATOCRIT 33.8 % (34.2-44.1); HEMOGLOBIN 10.3 g/dL (12.0-16.0); LYMPHOCYTES # (AUTO) 0.4 (1.0-3.2); LYMPHOCYTES % 5.7 % (18.0-39.1); MEAN CORPUSCULAR HEMOGLOBIN 29.7 pg (28-32); MEAN CORPUSCULAR HGB CONC 30.5 g/dL (31-35); MEAN CORPUSCULAR VOLUME 97.4 fL (81-99); MONOCYTES # (AUTO) 0.7 (0.2-0.8); MONOCYTES % 9.6 % (4.4-11.3); NEUTROPHILS % 73.3 % (38.7-80.0); PLATELET COUNT 134 x10e3/uL (140-360); RED BLOOD COUNT 3.47 x10e6/uL (3.6-5.1); RED CELL DISTRIBUTION WIDTH 15.2 % (11.7-14.4)
[2018-05-18 06:30] LABS: EOSINOPHILS % (MANUAL) 12 % (0-7); LYMPHOCYTES % (MANUAL) 11 % (19-48); MONOCYTES % (MANUAL) 9 % (3.4-9.0); NEUTROPHILS % (MANUAL) 68 % (40-74); NUCLEATED RED BLOOD CELLS 2
[2018-05-18 06:31] LABS: ANISOCYTOSIS S; PLATELET ESTIMATE SLIGHTLY DECREASED; PLATELET MORPHOLOGY COMMENT NORMAL; POIKILOCYTOSIS S; RBC MORPHOLOGY COMMENT NORMAL
[2018-05-18 06:32] LABS: ANION GAP 14.4 mmol/L (8-16); CALCIUM 8.4 mg/dL (8.4-10.2); CREATININE, SERUM 3.01 mg/dL (0.57-1.11); POTASSIUM 4.4 mmol/L (3.5-5.1)
--- NOTE | 2018-05-18 07:33 | Progress Note ---
DATE: SUBJECTIVE: Patient comes in with congestive heart failure, volume overload, and acute renal failure. Currently, no complaints. Positive for debility, cannot walk. MEDICATIONS: Included apixaban, aspirin, Bumex which has been changed from Lasix, clonidine, Levemir, levothyroxine, Zaroxolyn, metoprolol, nifedipine, and nystatin. PHYSICAL EXAMINATION: VITAL SIGNS: Temperature is 97.1, pulse of 88, respiration of 19, blood pressure is 111/64, pulse oximetry at 99%. HEENT: Normocephalic, atraumatic. Pupils are reactive to light and accommodation. CVS: S1, S2 irregular. ABDOMEN: Nontender, nondistended. EXTREMITIES: No clubbing, no cyanosis. 1+ edema present. Positive for some erythema. : Wood to gravity. Patient had an output of total over 400 mL yesterday. LABORATORY VALUES: Today's white count of 6.7, hemoglobin of 10.3, hematocrit of 33.8, no left shift present. Chemistry shows sodium 133, potassium of 4.4, BUN of 83, creatinine of 3.10. Glucose has been normal at 149, 163. IMAGING STUDIES: Chest x-ray done on the , no significant changes. ASSESSMENT: 1. Ahnmp-bv-uqvapjh renal failure. 2. Volume overload from congestive heart failure and also from kidney failure. 3. Anemia of chronic disease, multifactorial. 4. Atrial fibrillation. 5. Hyperlipidemia. 6. Hypothyroidism. 7. Diabetes mellitus. PLAN: The patient has been changed from Lasix to Bumex. Will continue to monitor the patient. Spot urine protein and creatinine ratio has been ordered. Patient will be monitored and will continue monitoring her lytes. Also for debility, will go ahead and order physical therapy. For further information, look in the chart. Job#: [id number]
[2018-05-18] MEDS: APIXAB 2.5 MG TABLET PO SCH ×2 (09:00→17:00)
[2018-05-18] MEDS: NYSTATIN 15 GM POWDER UD BTL TOP SCH ×2 (09:00→21:42)
[2018-05-18] MEDS: NIFEDIPINE CR 30 MG TAB PO SCH (09:00)
[2018-05-18] MEDS: METOLAZONE 5 MG TAB PO SCH (09:00)
[2018-05-18] MEDS: ASPIRIN 81 MG CHEW TAB PO SCH (09:00)
[2018-05-18] MEDS: INSULIN DETEMIR 100 UNIT/ML PEN SQ SCH (09:00)
[2018-05-18] MEDS: PARICALCITOL PO SCH (09:00)
--- NOTE | 2018-05-18 11:15 | NUR ---
MD GONZALES INTO SEE PT, DISCUSSED POC
[2018-05-18] MEDS: METOPROLOL TARTRATE 25 MG TAB PO SCH ×2 (12:00→21:42)
--- NOTE | 2018-05-18 12:37 | NUR ---
TELEPHONED MD NAJERA REGARDING DOSE OF LEVEMIR AND PT LOW BLOOD GLUCOSE, AWAITING CALL BACK
--- NOTE | 2018-05-18 15:20 | NUR ---
PHYSICAL THERAPIST WORKED WITH PT, STOOD AT SIDE OF BED, NOW BACK IN BED, CALL LIGHT WITHIN REACH
[2018-05-18 16:17] LABS: ANION GAP 15.7 mmol/L (8-16); CALCIUM 8.7 mg/dL (8.4-10.2); POTASSIUM 4.7 mmol/L (3.5-5.1)
--- NOTE | 2018-05-18 17:53 | NUR ---
Nutrition Screen Note RD Recommendation for Physician: -Continue renal diabetic diet as ordered Plan of Care: RD following, monitoring for tolerance and adequacy Nutrition reason for involvement: Diagnosis Primary Diagnose(s): 1. Zkdct-vp-yxsotea renal failure. 2. Volume overload from congestive heart failure and also from kidney failure. 3. Anemia of chronic disease, multifactorial. PMH: type 2 diabetes, chronic kidney disease, stage 4, hypertension, atrial fibrillation, hypothyroidism, congestive heart failure Ht: 67in Wt: 306.56lb BMI: 48kg/m2 IBW: 148lb RD Assessment: (05/18) Chart reviewed. Labs and meds reviewed. 73yo F, who is admitted for SOB. Visited pt in the room. Pt reports fair appetite with ~50-75% recorded meal intake. 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 No recent weight loss reported. No GI complains noted at this time. LBM 1/3, normal per pt. No complains of chewing or swallowing difficulty. Will continue to monitor and follow. Current Diet: renal diabetic diet Malnutrition Evaluation (05/18/2017) The patient does not meet criteria for a specified degree of malnutrition at this time. Will re-evaluate at follow-up as appropriate. Diet Education Needs Assessment: Diet education not indicated. Nutrition Care Level: low Signed: Deanne Ochoa, MS, RD, LD
--- NOTE | 2018-05-18 18:45 | NUR ---
NO CHANGE IN CONDITION, CALL LIGHT WITHIN REACH
[2018-05-19] VITALS (7 sets, daily range): BP systolic 113–152; BP diastolic 51–74
[2018-05-19 03:40] LABS: CREATININE,URINE RANDOM 33.33 mg/dL (47-110); TOTAL PROTEIN, URINE 18.1 mg/dL (1-14)
[2018-05-19] MEDS: LEVOTHYROXINE SODIUM 100 MCG TAB PO SCH (05:33)
[2018-05-19] MEDS: BUMETANIDE INJ 0.25MG/ML 4ML VIAL IV SCH ×3 (05:33→18:00)
--- NOTE | 2018-05-19 07:24 | Progress Note ---
DATE: SUBJECTIVE: Patient is admitted for acute exacerbation of congestive heart failure, wjnrw-yb-dudhdva renal injury, debility, and hypertension, and at this time, the patient is very debilitated and cannot move. She tried to walk with therapy yesterday, was not successful, sat at the side of the bed, was short of breath on walking. No chest pain is noted. Positive for fever as documented by the patient. PHYSICAL EXAMINATION VITAL SIGNS: Today, temperature is 100.3, T-max of 100.3; pulse of 97; blood pressure 127/60; pulse oximetry is 96%. HEENT: Normocephalic, atraumatic. Oxygen by nasal cannula at 2 liters. CVS: S1 and S2 normal. No S3 present. ABDOMEN: Nontender and nondistended. EXTREMITIES: No clubbing. No cyanosis. Positive for 2+ edema. CURRENT MEDICATIONS: Currently, patient is on Bumex 2 mg q.8h. IV, levothyroxine 100 mcg, nystatin 1 gram, metoprolol 25 mg twice a day, Eliquis 2.5 mg twice a day, metolazone 20 mg daily, nifedipine 90 mg, aspirin 81, and Levemir 40 units at nighttime. LABORATORY VALUES: Patient's white count is 6.79 today, hemoglobin of 10.3, and hematocrit of 33.8. Chemistry shows sodium of 135, potassium of 4.7, BUN of 87, and creatinine of 3.0, stable. Glucose has been running a little high at 183. ASSESSMENT AND PLAN: 1. Congestive heart failure, stable. Continue with diuretics. 2. Acute kidney injury, on chronic kidney disease IV, stable. 3. Diabetes, controlled with Levemir. 4. Debility: She will need more physical therapy and occupational therapy. Patient lives in an assisted living home, might need to go to a senior care facility before discharge back to home setting. We will continue monitoring the fluid electrolyte balance and check her daily I's and O's. At this point, no emergent dialysis is needed according to nephrology. We will continue monitoring the patient, continue monitoring her progress and further recommendations per clinical course. Job#: [id number] JOSS
[2018-05-19] MEDS: NYSTATIN 15 GM POWDER UD BTL TOP SCH ×2 (09:00→20:25)
[2018-05-19] MEDS: PARICALCITOL PO SCH (09:00)
[2018-05-19] MEDS: INSULIN DETEMIR 100 UNIT/ML PEN SQ SCH (09:00)
--- NOTE | 2018-05-19 09:17 | NUR ---
PT WHEELED OFF UNIT VIA BED FOR CXR, NO CHANGE IN CONDITION
--- NOTE | 2018-05-19 09:43 | Diagnostic Imaging Report ---
EXAMINATION: CHEST 2 VIEWS INDICATION: ^CHF ^[id number] ^0920 ^Y COMPARISON: Chest x-ray 05/15/2018 FINDINGS: PA and lateral views Lateral view is compromised despite being repeated. TUBES and LINES: None. LUNGS: Patchy alveolar airspace opacities in each lung. Vascular markings are prominent PLEURA: Small left posterior pleural effusion. No pneumothorax HEART AND MEDIASTINUM: Stable cardiomegaly. BONES AND SOFT TISSUES: No focal osseous lesions. Fusion hardware in the upper left humerus is stable. Soft tissues are unremarkable. UPPER ABDOMEN: No free air under the diaphragm. IMPRESSION: 1. Cardiomegaly and vascular congestion with pulmonary edema. 2. Small left pleural effusion. Signed by: Dr. Eric Field MD on 05/19/2018 9:40 AM
[2018-05-19] MEDS: APIXAB 2.5 MG TABLET PO SCH ×2 (09:45→18:00)
[2018-05-19] MEDS: METOLAZONE 5 MG TAB PO SCH (09:45)
[2018-05-19] MEDS: METOPROLOL TARTRATE 25 MG TAB PO SCH ×2 (09:45→20:28)
[2018-05-19] MEDS: NIFEDIPINE CR 30 MG TAB PO SCH (09:45)
[2018-05-19] MEDS: ASPIRIN 81 MG CHEW TAB PO SCH (09:45)
--- NOTE | 2018-05-19 09:45 | NUR ---
BACK IN ROOM, AM MEDICATIONS GIVEN, PT REPORTS EATING SMALL AMOUNT OF BREAKFAST, "NOT HUNGRY", PT REFUSING LEVEMIR AGAIN, TELEPHONED MD NAJERA TO MAKE AWARE, AWAITING CALL BACK,
[2018-05-19] MEDS ORDERED: DEXTROSE 50% SYRINGE 50 ML IV PRN (17:30)
--- NOTE | 2018-05-19 19:26 | NUR ---
WALKING ROUNDS PERFORMED, RECEIVED PT LAYING SEMI FOWLERS IN BED, AAOX3, RR EVEN AND NON-LABORED, O2 BY NC AT 3L. NO S/SX OF DISTRESS NOTED. LEFT PT LAYING SEMI FOWLERS IN BED, BED IN LOW LOCKED POSITION, SIDE RAILS UPX2, CALL LIGHT AND PHONE WITHIN REACH.
[2018-05-19] MEDS: INSULIN REGULAR, HUMAN 100 UNIT/1 ML 3ML VIAL SQ SCH (20:25)
--- NOTE | 2018-05-19 22:21 | NUR ---
PT REFUSED TO BE TURNED AT THIS TIME. PT REPORTS SHE WILL ASK TO BE TURNED IN A WHILE.
[2018-05-20] VITALS (7 sets, daily range): BP systolic 114–126; BP diastolic 56–88
[2018-05-20] MEDS: BUMETANIDE INJ 0.25MG/ML 4ML VIAL IV SCH ×4 (00:24→17:50)
--- NOTE | 2018-05-20 00:40 | NUR ---
PT REQUESTING TO SIT ON SIDE OF BED. PT ASSISTED TO SITTING POSITION, SIDE TABLE IN FRONT OF PT, BED IN LOW LOCKED POSITION, SIDE RAILS UPX2, CALL LIGHT AND PHONE WITHIN REACH.
[2018-05-20] MEDS: LEVOTHYROXINE SODIUM 100 MCG TAB PO SCH (06:08)
[2018-05-20 06:40] LABS: BASOPHILS % 0.5 % (0.0-1.0); EOSINOPHILS # (AUTO) 0.4 (0.0-0.4); EOSINOPHILS % 7.1 % (0.0-6.0); HEMATOCRIT 31.5 % (34.2-44.1); HEMOGLOBIN 9.8 g/dL (12.0-16.0); LYMPHOCYTES # (AUTO) 0.2 (1.0-3.2); LYMPHOCYTES % 4.2 % (18.0-39.1); MEAN CORPUSCULAR HEMOGLOBIN 30.2 pg (28-32); MEAN CORPUSCULAR HGB CONC 31.1 g/dL (31-35); MEAN CORPUSCULAR VOLUME 96.9 fL (81-99); MONOCYTES # (AUTO) 0.5 (0.2-0.8); MONOCYTES % 9.2 % (4.4-11.3); NEUTROPHILS # (AUTO) 4.5 (2.1-6.9); NEUTROPHILS % 78.5 % (38.7-80.0); PLATELET COUNT 121 x10e3/uL (140-360); RED BLOOD COUNT 3.25 x10e6/uL (3.6-5.1); RED CELL DISTRIBUTION WIDTH 14.7 % (11.7-14.4)
[2018-05-20 07:05] LABS: ALBUMIN 2.9 g/dL (3.5-5.0); ALBUMIN/GLOBULIN RATIO 0.8 (0.8-2.0); ANION GAP 15.1 mmol/L (8-16); CALCIUM 8.6 mg/dL (8.4-10.2); CREATININE, SERUM 2.99 mg/dL (0.57-1.11); POTASSIUM 4.1 mmol/L (3.5-5.1)
[2018-05-20] MEDS: INSULIN REGULAR, HUMAN 100 UNIT/1 ML 3ML VIAL SQ SCH ×4 (08:00→22:00)
[2018-05-20] MEDS: METOLAZONE 5 MG TAB PO SCH (08:27)
[2018-05-20] MEDS: NYSTATIN 15 GM POWDER UD BTL TOP SCH ×2 (08:27→22:00)
[2018-05-20] MEDS: NIFEDIPINE CR 30 MG TAB PO SCH (08:27)
[2018-05-20] MEDS: APIXAB 2.5 MG TABLET PO SCH ×2 (08:27→17:49)
[2018-05-20] MEDS: PARICALCITOL PO SCH (08:27)
[2018-05-20] MEDS: ASPIRIN 81 MG CHEW TAB PO SCH (08:27)
[2018-05-20] MEDS: METOPROLOL TARTRATE 25 MG TAB PO SCH ×2 (08:27→22:00)
--- NOTE | 2018-05-20 08:31 | Progress Note ---
DATE: SUBJECTIVE: Patient is here for acute congestive heart failure, acute renal failure, debility, and diabetes mellitus. Patient is currently doing better. Shortness of breath is better, but unable to walk and is very weak and lethargic. PHYSICAL EXAMINATION VITAL SIGNS: Temperature is 97.9 and afebrile, pulse of 88, respirations of 18, blood pressure is 114/88, pulse oximetry 97% on 3 liters of oxygen. CVS: S1, S2 normal. Regular rate and rhythm. ABDOMEN: Nontender, nondistended. EXTREMITIES: No clubbing, no cyanosis, and no edema. CURRENT MEDICATIONS 1. Bumex 2 mg q.8 hours. 2. Levothyroxine 100 mcg. 3. Nystatin 1 gram. 4. Eliquis 2.5 mg twice a day. 5. Metolazone 20 mg daily. 6. Nifedipine 90 mg daily. 7. Levemir 40 units at nighttime, which was cut down to 30 units. 8. Clonidine as needed. ASSESSMENT AND PLAN 1. Congestive heart failure, compensated. Continue with diuretic. 2. Acute kidney injury and chronic kidney disease, stable. 3. Diabetes mellitus. We will decrease her Levemir to 30 units. 1. Debility. Continue monitoring the patient. Occupational and physical therapy has been ordered. Patient will need SNF. We will go ahead and order for alf facility before she goes back home. Continue with monitoring her electrolyte imbalances and check electrolyte levels, strict I's and O's and also low-salt diet has been ordered. Job#: [id number] PACO
[2018-05-20] MEDS: INSULIN DETEMIR 100 UNIT/ML PEN SQ SCH (08:42)
--- NOTE | 2018-05-20 09:31 | NUR ---
Met with pt to discuss order for SNF. SHe requested CM to pray for her, and this was done. She voiced appreciation. Pt lives at [facility] and would like SNF there if possible. CM/NICOLAS to follow up with [facility] Monday.
[2018-05-20 09:52] LABS: BAND NEUTROPHILS % (MANUAL) 1 %; EOSINOPHILS % (MANUAL) 4 % (0-7); LYMPHOCYTES % (MANUAL) 26 % (19-48); MONOCYTES % (MANUAL) 7 % (3.4-9.0); NEUTROPHILS % (MANUAL) 60 % (40-74); PLATELET ESTIMATE ADEQUATE; PLATELET MORPHOLOGY COMMENT NORMAL; RBC MORPHOLOGY COMMENT NORMAL
[2018-05-20 15:52] LABS: CALCIUM 8.3 mg/dL (8.4-10.2); CREATININE, SERUM 3.04 mg/dL (0.57-1.11)
--- NOTE | 2018-05-20 20:42 | NUR ---
PAGE PLACED FOR MD NAJERA CONCERNING PT REPORTS OF HEADACHE. WAITING FOR CALLBACK.
--- NOTE | 2018-05-20 21:10 | NUR ---
SPOKE WITH MD NAJERA CONCERNING PT REPORTS OF HEADACHE. NEW ORDERS RECEIVED.
[2018-05-20] MEDS: ACETAMINOPHEN 325 MG TAB PO PRN (22:00)
[2018-05-21] VITALS (8 sets, daily range): BP systolic 100–132; BP diastolic 56–74
[2018-05-21] MEDS: BUMETANIDE INJ 0.25MG/ML 4ML VIAL IV SCH ×4 (00:50→17:42)
[2018-05-21] MEDS: LEVOTHYROXINE SODIUM 100 MCG TAB PO SCH (06:18)
[2018-05-21 06:39] LABS: ANION GAP 14.8 mmol/L (8-16); CALCIUM 8.3 mg/dL (8.4-10.2); CREATININE, SERUM 2.98 mg/dL (0.57-1.11); POTASSIUM 3.8 mmol/L (3.5-5.1)
--- NOTE | 2018-05-21 06:54 | Progress Note ---
DATE: Patient is here for acute congestive heart failure, systolic, [id number]-[id number]. Patient is here for acute renal failure and debility. Currently, afebrile. Complains of extreme weakness. Did do some therapy yesterday. Urine output is very low. No other complaints, except for pleuritic lesions on the upper torso. MEDICATIONS: The patient is on: 1. Eliquis 2.5 mg. 2. Aspirin 81 mg. 3. Bumex. 4. Clonidine. 5. Insulin Levemir. 6. Metolazone. 7. Metoprolol. 8. Nifedipine. 9. Nystatin. OBJECTIVE VITAL SIGNS: Temperature is 97.2, pulse of 91, respirations of 18, blood pressure is 122/74, pulse oximetry 97%. HEENT: Normocephalic and atraumatic. Pupils are reactive to light and accommodation. CV: S1 and S2 distant. Irregular. ABDOMEN: Nontender and nondistended. EXTREMITIES: No clubbing. No cyanosis. No edema. LABORATORY VALUES: Hemoglobin is 9.8, hematocrit of 31.4. Chemistries are pending. Glucose is running in the 120s to 170s. IMAGING STUDIES: Done on May 19, 2018, shows cardiomegaly and vascular congestion with pulmonary edema and a small pleural effusion. MICROBIOLOGY: None. ASSESSMENT 1. Congestive heart failure, compensated: Continue with diuresis. 2. Acute kidney injury, stable: Continue monitoring the patient's BUN and creatinine. 3. Diabetes mellitus: Continue on Levemir at the lower dose. Insulin sliding scale. 4. Atrial fibrillation: Continue Eliquis. 5. Hypothyroidism: Continue on levothyroxine. 6. Debility: Continue monitoring the patient. SNF has been ordered. Patient can be discharged as the electrolytes are balanced out, and if renal is okay. Further recommendations per clinical course. Will continue monitoring the patient and possible discharge today if SNF is available. Job#: [id number] DORIAN
--- NOTE | 2018-05-21 07:00 | NUR ---
SHIFT REPORT RECEIVED FROM NIGHT RN. PT DENIES NEEDS AT THIS TIME.
[2018-05-21] MEDS: INSULIN REGULAR, HUMAN 100 UNIT/1 ML 3ML VIAL SQ SCH ×4 (07:30→21:00)
--- NOTE | 2018-05-21 07:40 | NUR ---
ASSESSMENT: Spiritual concern Pt requested spray painter helper visit and prayer. Pt is "determined" to improve and help others. Pt's states she doesn't want to be "in a wheelchair the rest of my life." Pt finds strength and hope thru sarai and prayer. Intervention: Provided empathic listening and identification of emotions. Provided prayer and information on how to reach spray painter helper, if needed. Outcome: Pt expressed appreciation for visit. MILADYS SERNA Customer Experience Specialist Spiritual Care Department O: [phone] Pager: [phone] ([phone] number calling from)
[2018-05-21] MEDS: APIXAB 2.5 MG TABLET PO SCH ×2 (08:42→17:42)
[2018-05-21] MEDS: PARICALCITOL PO SCH (08:42)
[2018-05-21] MEDS: ASPIRIN 81 MG CHEW TAB PO SCH (08:42)
[2018-05-21] MEDS: NYSTATIN 15 GM POWDER UD BTL TOP SCH ×2 (08:43→21:18)
[2018-05-21] MEDS: METOLAZONE 5 MG TAB PO SCH (08:43)
[2018-05-21] MEDS: METOPROLOL TARTRATE 25 MG TAB PO SCH ×2 (08:43→21:18)
[2018-05-21] MEDS: NIFEDIPINE CR 30 MG TAB PO SCH (08:43)
[2018-05-21] MEDS: INSULIN DETEMIR 100 UNIT/ML PEN SQ SCH (08:45)
[2018-05-21 09:35] LABS: CLARITY,URINE HAZY (CLEAR); COLOR,URINE YELLOW (YELLOW); LEUKOCYTE ESTERASE ,URINE 2+ (NEGATIVE); NITRITE,URINE NEGATIVE (NEGATIVE); PROTEIN,URINE DIPSTICK NEGATIVE (NEGATIVE)
[2018-05-21 09:36] LABS: BILIRUBIN,URINE NEGATIVE (NEGATIVE); KETONES,URINE NEGATIVE (NEGATIVE); URINE UROBILINOGEN 0.2 mg/dL (0.2 - 1)
[2018-05-21 09:37] LABS: BACTERIA,URINE MANY /HPF; EPITHELIAL CELLS,URINE MANY /LPF; WBC,URINE (MAN) >50 /HPF (0-5)
[2018-05-22] VITALS (8 sets, daily range): BP systolic 97–129; BP diastolic 54–88
[2018-05-22] MEDS: BUMETANIDE INJ 0.25MG/ML 4ML VIAL IV SCH ×4 (05:45→18:13)
[2018-05-22] MEDS: LEVOTHYROXINE SODIUM 100 MCG TAB PO SCH (05:45)
[2018-05-22 06:05] LABS: BASOPHILS % 0.4 % (0.0-1.0); EOSINOPHILS % 14.2 % (0.0-6.0); HEMATOCRIT 31.3 % (34.2-44.1); LYMPHOCYTES # (AUTO) 0.4 (1.0-3.2); LYMPHOCYTES % 5.2 % (18.0-39.1); MEAN CORPUSCULAR HEMOGLOBIN 30.4 pg (28-32); MEAN CORPUSCULAR HGB CONC 31.9 g/dL (31-35); MEAN CORPUSCULAR VOLUME 95.1 fL (81-99); MONOCYTES # (AUTO) 0.8 (0.2-0.8); MONOCYTES % 10.9 % (4.4-11.3); NEUTROPHILS # (AUTO) 4.9 (2.1-6.9); NEUTROPHILS % 68.9 % (38.7-80.0); PLATELET COUNT 150 x10e3/uL (140-360); RED BLOOD COUNT 3.29 x10e6/uL (3.6-5.1); RED CELL DISTRIBUTION WIDTH 14.7 % (11.7-14.4)
[2018-05-22 06:24] LABS: ANION GAP 14.9 mmol/L (8-16); CALCIUM 8.4 mg/dL (8.4-10.2); CREATININE, SERUM 2.99 mg/dL (0.57-1.11); POTASSIUM 3.9 mmol/L (3.5-5.1)
--- NOTE | 2018-05-22 06:56 | NUR ---
PT IS AAOX3. BLOOD GLUCOSE READING 51. JUICE, PUDDING AND CRACKERS GIVEN. RECHECKED BLOOD GLUCOSE NOW READING 92.
[2018-05-22] MEDS: INSULIN REGULAR, HUMAN 100 UNIT/1 ML 3ML VIAL SQ SCH ×4 (07:30→21:00)
--- NOTE | 2018-05-22 07:37 | Progress Note ---
DATE: Patient is here for acute renal failure, fjqwg-bz-[id number] congestive heart failure and generalized weakness. Currently, the patient is getting Bumex and metolazone. The patient is diuresing well. No complaints except for pain in the sacral area. The patient does have some perianal itching, too. The patient did drop her blood sugars to the 50s today and was given lower dose of Levemir yesterday. OBJECTIVE VITAL SIGNS: Temperature is 98.0, pulse 69, respirations 21, blood pressure 109/72, pulse oximetry 97% on 3 liters nasal cannula. HEENT: Normocephalic and atraumatic. Pupils are reactive to light and accommodation. CVS: S1 and S2 normal. Regular rate and rhythm. ABDOMEN: Nontender and nondistended. EXTREMITIES: Positive for erythema in the lower extremities and positive for edema, too. LABORATORY VALUES: White count is 7.17, hemoglobin 10, hematocrit 31.3. No left shift present. Sodium 136, potassium 3.9, BUN 94, creatinine 2.99, glucose 51. ASSESSMENT AND PLAN 1. Iwlbp-sk-xpaaqbq renal failure. Continue with diuresis. Dr. March is on the case. 2. Atrial fibrillation. Continue on Eliquis. 3. Hypothyroidism. Continue levothyroxine. 4. Debility. SNF has been ordered. The patient can be transferred to SNF when a bed is available. 5. Diabetes mellitus. Will continue lowering the dose of Levemir. Further recommendations per clinical course. The patient can be discharged when a SNF bed is available and will be followed up with nephrology on an outpatient basis. Job#: [id number]
[2018-05-22] MEDS: ASPIRIN 81 MG CHEW TAB PO SCH (08:43)
[2018-05-22] MEDS: ACETAMINOPHEN 325 MG TAB PO PRN (08:43)
--- NOTE | 2018-05-22 08:44 | NUR ---
Patient alert and responsive, generalized edema and diuresis with kidney protective diuretics, generalized pains and medicated with APAP, call light within reach, will monitor.
[2018-05-22] MEDS: METOLAZONE 5 MG TAB PO SCH (08:51)
[2018-05-22] MEDS: PARICALCITOL PO SCH (08:51)
[2018-05-22] MEDS: NIFEDIPINE CR 30 MG TAB PO SCH (08:51)
[2018-05-22] MEDS: METOPROLOL TARTRATE 25 MG TAB PO SCH ×2 (08:51→21:51)
[2018-05-22] MEDS: NYSTATIN 15 GM POWDER UD BTL TOP SCH ×2 (08:51→21:51)
[2018-05-22] MEDS: INSULIN DETEMIR 100 UNIT/ML PEN SQ SCH (09:00)
--- NOTE | 2018-05-22 14:24 | NUR ---
PT CHOICE TO [facility] SIGNED AND FILED IN CHART FAXED CLINICALS TO [phone].
--- NOTE | 2018-05-22 18:23 | NUR ---
Patient alert and responsive, total care patient requiring repositioning, incontinence care provided, continues on diuresis and Wood in place draining yellow urine, call light within reach, skin breakdown precautions in place, will monitor.
[2018-05-23] VITALS: BP 132/57
[2018-05-23] MEDS: BUMETANIDE INJ 0.25MG/ML 4ML VIAL IV SCH ×4 (00:07→18:00)
[2018-05-23] MEDS: ACETAMINOPHEN 325 MG TAB PO PRN (03:09)
[2018-05-23 04:30] VITALS: BP 138/57
[2018-05-23] MEDS: LEVOTHYROXINE SODIUM 100 MCG TAB PO SCH (06:13)
[2018-05-23 06:19] LABS: ANION GAP 16.6 mmol/L (8-16); CALCIUM 8.3 mg/dL (8.4-10.2); CREATININE, SERUM 2.76 mg/dL (0.57-1.11); POTASSIUM 3.6 mmol/L (3.5-5.1)
[2018-05-23] MEDS: INSULIN REGULAR, HUMAN 100 UNIT/1 ML 3ML VIAL SQ SCH ×3 (07:30→16:30)
--- NOTE | 2018-05-23 07:36 | Progress Note ---
DATE: Patient is here for acute heart failure and also for acute kidney injury. The patient has no complaints. Had some rectal and perineal pain, better with medications. The patient is feeling better. Did sit out of bed for some time yesterday and is feeling better. OBJECTIVE VITAL SIGNS: Temperature is 99.5, pulse 109, respirations 20, blood pressure 132/57, pulse oximetry 100%. HEENT: Normocephalic and atraumatic. Pupils are reactive to light and accommodation. CVS: S1 and S2 normal. Regular rate and rhythm. ABDOMEN: Nontender and nondistended. EXTREMITIES: Positive for 1+ edema. LABORATORY VALUES: Chemistries today: Sodium 135, potassium 3.6, BUN 101, creatinine 2.76, glucose 122. ASSESSMENT AND PLAN 1. Dpjaa-ub-yldoxwq renal failure. Continue with gentle diuresis. 2. Atrial fibrillation on Eliquis. 3. Congestive heart failure. Continue with diuresis. 4. Hypothyroidism. Continue levothyroxine. 5. Debility, generalized. SNF has been ordered. The patient can be transferred again when a bed is available. 6. Diabetes mellitus. Will continue monitoring the patient for hypoglycemia. Continue on the current dose of Levemir. Job#: [id number]
[2018-05-23] MEDS: PARICALCITOL PO SCH (09:00)
[2018-05-23 09:30] VITALS: BP 126/69
[2018-05-23] MEDS: ASPIRIN 81 MG CHEW TAB PO SCH (09:30)
[2018-05-23] MEDS: NIFEDIPINE CR 30 MG TAB PO SCH (09:30)
[2018-05-23] MEDS: METOPROLOL TARTRATE 25 MG TAB PO SCH (09:30)
[2018-05-23] MEDS: METOLAZONE 5 MG TAB PO SCH (09:30)
[2018-05-23] MEDS: INSULIN DETEMIR 100 UNIT/ML PEN SQ SCH (09:30)
--- NOTE | 2018-05-23 09:30 | NUR ---
assessment complete no distress noted,updated on poc voiced understanding, denies pain at this time, r hand 20g no ss of infiltration noted, arnold to bsd with yellow urine noted, no other co voiced call light in reach will continue ot monitor
[2018-05-23 09:51] VITALS: BP 126/69
[2018-05-23 12:00] VITALS: BP 114/61
--- NOTE | 2018-05-23 14:15 | NUR ---
paged dr santiaog re: pt being transferred to [facility] awaiting call back
[2018-05-23 17:39] VITALS: BP 137/73
== END 2018-05-23 18:39 | DRG 291 ==
LOC: ER 13:08 → ERHOLD 20:35 → IMCU 05-15 01:18 → MED/SURG 05-15 08:21 → OBSVTOIN 05-16 08:51
PROVIDERS: ADMIT Family Medicine; ATTEND Family Medicine
DX: I13.0 Hypertensive heart and chronic kidney disease with heart failure and stage 1 through stage 4 chronic kidney disease, or unspecified chronic kidney disease (principal); I50.23 Acute on chronic systolic (congestive) heart failure; N18.4 Chronic kidney disease, stage 4 (severe); N17.9 Acute kidney failure, unspecified; Z68.42 Body mass index [BMI] 45.0-49.9, adult; E11.22 Type 2 diabetes mellitus with diabetic chronic kidney disease; I48.91 Unspecified atrial fibrillation; E66.9 Obesity, unspecified; R53.81 Other malaise; Z79.82 Long term (current) use of aspirin; Z79.4 Long term (current) use of insulin; E03.9 Hypothyroidism, unspecified; D63.8 Anemia in other chronic diseases classified elsewhere; E78.5 Hyperlipidemia, unspecified
CPT/HCPCS: 36415; 51700; 71045; 71046; 80048; 80053; 81001; 82550; 82553; 82570; 82948; 83880; 84156; 84443; 84484; 85025; 85379; 85610; 85730; 93005; 93970; 97139; 99284; G0378; J1940